=== PATIENT | female | born 1980 | race Caucasian/White ===

== ENCOUNTER 2020-03-20 13:23 | Emergency (ER) | payer OTHER, SELFPAY ==
--- NOTE | 2020-03-20 13:30 | PC.NURSE ---
POC test performed on 03/12/2020
== END 2020-03-20 13:30 | disposition left against medical advice (07) ==
LOC: EXPTROY 13:29
PROVIDERS: Emergency Provider Nurse Practitioner Family; PCP Nurse Practitioner
DX: Z53.21 Procedure and treatment not carried out due to patient leaving prior to being seen by health care provider (principal); U07.1 COVID-19
CPT/HCPCS: 87426; 99199; C9803

== ENCOUNTER → 2020-07-02 09:43 | Outpatient (CLI) | payer OTHER, SELFPAY ==
--- NOTE | ~2020-07-02 | XR_ITS ---
EXAMINATION: XR chest 2V DATE: 07/02/2020 10:11 INDICATION: Preop. TECHNIQUE: Frontal and lateral views of the chest were obtained. COMPARISON: None. FINDINGS: The chest demonstrates clear lungs without pneumonia, pleural effusion, or pneumothorax. Th e heart size is normal. There are surgical clips in the abdomen. IMPRESSION: 1. No acute cardiopulmonary disease. Reviewed, dictated and finalized at location B.
== END ==
DX: Z01.818 Encounter for other preprocedural examination (principal)
CPT/HCPCS: 71046

== ENCOUNTER 2021-06-05 08:29 | Outpatient (CLI) | payer OTHER, SELFPAY ==
--- NOTE | ~2021-06-05 | MM_ITS ---
EXAMINATION: MM screening jaimie BI w lex HISTORY: Screening mammogram TECHNIQUE: Craniocaudal and mediolateral oblique 3-D tomosynthesis images were obtained and synthetic 2-D images were generated. CAD analysis was submitted and interpreted. COMPARISON: No prior mammogram is available for comparison at this institution. BREAST PARENCHYMAL COMPOSITION: There are scattered areas of fibroglandular density. FINDINGS: There is no evidence of suspicious mass, calcification, or architectural distortion to sugg est malignancy in either breast. There has been no suspicious interval change. IMPRESSION: 1. No mammographic evidence of malignancy. 2. Recommend routine screening mammography in one year. BI-RADS Category 1: Negative Reviewed, dictated and finalized at location A.
[2021-06-05 09:19] LABS: Basophils Percent Auto 0.3 % (0.2-1.2); Eosinophils Absolute Auto 0.2 K/mm3 (0-0.3); Eosinophils Percent Auto 2.7 % (0-4.4); Hematocrit 40.7 % (37.0-47.0); Hemoglobin 13.9 g/dL (12.0-15.0); Immature Granulocyte Absolute 0.01 K/mm3 (0.00-0.031); Immature Granulocyte Percent A 0.2 % (0-0.5); Lymphocytes Absolute Auto 2.36 K/mm3 (0.9-3.2); Lymphocytes Percent Auto 37.3 % (18.3-44.2); Mean Corpuscular HGB Conc 34.2 g/dl (32-36); Mean Corpuscular Hemoglobin 29.9 pg (26-34); Mean Corpuscular Volume 87.5 fl (80-100); Mean Platelet Volume 9.8 fl (7.4-10.4); Monocytes Absolute Auto 0.4 K/mm3 (0.1-0.6); Monocytes Percent Auto 5.7 % (2.6-8.5); Neutrophils Absolute Auto 3.4 K/mm3 (1.3-6.7); Neutrophils Percent Auto 53.8 % (45.5-73.1); Platelet Count Result 268 k/mm3 (150-375); Red Blood Count 4.65 M/mm3 (4.2-5.4); Red Cell Distribution Width 13.2 % (11.5-14.5); White Blood Count 6.3 K/mm3 (4.5-10.0)
[2021-06-05 09:32] LABS: Alanine Aminotransferase 18 U/L (4-35); Albumin Level 4.5 g/dL (3.5-5.1); Alkaline Phosphatase 41 U/L (38-126); Anion Gap 4 mmol/L (8-16); Aspartate Amino Transferase 28 U/L (14-36); Bilirubin,Total 0.4 mg/dL (0.2-1.3); Blood Urea Nitrogen 17 mg/dL (7-17); Calcium 8.8 mg/dL (8.4-10.2); Carbon Dioxide 28 mmol/L (22-30); Chloride 105 mmol/L (98-107); Cholesterol 190 mg/dL (0-200); Estimated Glomerular Filt Rate > 60; Glucose 92 mg/dL (65-110); HDL Direct 61 mg/dL; Potassium 3.8 mmol/L (3.4-5.0); Sodium 137 mmol/L (137-145); Triglycerides 95 mg/dL (<150)
[2021-06-05 09:43] LABS: LDL Cholesterol Direct 92 mg/dL
[2021-06-05 09:58] LABS: Iron 168 ug/dL (37-170)
[2021-06-05 10:08] LABS: Percent Iron Saturation 41 % (20-50)
[2021-06-05 10:45] LABS: Folic Acid > 20.0 ng/mL (2.76->20)
== END 2021-06-05 08:30 | disposition home or self-care (01) ==
LOC: ANHIMG 08:32
PROVIDERS: PCP Nurse Practitioner; Visit Provider Nurse Practitioner
DX: Z12.31 Encounter for screening mammogram for malignant neoplasm of breast (principal); D50.9 Iron deficiency anemia, unspecified; F33.8 Other recurrent depressive disorders; Z13.220 Encounter for screening for lipoid disorders
CPT/HCPCS: 36415; 77063; 77067; 80053; 80061; 82746; 83540; 83550; 84443; 85025

== ENCOUNTER → 2021-10-03 09:20 | Outpatient (CLI) | payer OTHER, SELFPAY ==
--- NOTE | ~2021-10-03 | XR_ITS ---
XR cervical spine 4-5V DATE: 10/03/2021 09:40 INDICATION: Bilateral posterior neck pain for years TECHNIQUE: AP, lateral, swimmer, open-mouth views COMPARISON: None FINDINGS: There is mild reversal cervical curvature. There is moderate degenerative disc disease and mild retrolisthesis at C5-6. The remaining cervical i nterspaces are well preserved. C1 and C2 are normally aligned and the odontoid process is intact. No fracture or dislocation or lock ed facet or prevertebral soft tissue swelling. IMPRESSION: Mild reversal Moderate degenerative disc disease and mild retrolisthesis at C5-6 Reviewed, dictated and finalized at location B.
== END ==
PROVIDERS: PCP Nurse Practitioner; Visit Provider Nurse Practitioner
DX: M50.322 Other cervical disc degeneration at C5-C6 level (principal); G89.29 Other chronic pain
CPT/HCPCS: 72050

== ENCOUNTER 2021-10-04 09:04 | Outpatient (CLI) | payer OTHER, SELFPAY ==
[2021-10-04 19:08] LABS: Basophils Percent Auto 0.3 % (0.2-1.2); Eosinophils Absolute Auto 0.1 K/mm3 (0-0.3); Eosinophils Percent Auto 2.1 % (0-4.4); Hematocrit 38.8 % (37.0-47.0); Hemoglobin 12.8 g/dL (12.0-15.0); Immature Granulocyte Absolute 0.02 K/mm3 (0.00-0.031); Immature Granulocyte Percent A 0.3 % (0-0.5); Lymphocytes Absolute Auto 2.02 K/mm3 (0.9-3.2); Lymphocytes Percent Auto 32.4 % (18.3-44.2); Mean Corpuscular Volume 91.1 fl (80-100); Mean Platelet Volume 10.1 fl (7.4-10.4); Monocytes Absolute Auto 0.2 K/mm3 (0.1-0.6); Monocytes Percent Auto 3.5 % (2.6-8.5); Neutrophils Absolute Auto 3.8 K/mm3 (1.3-6.7); Neutrophils Percent Auto 61.4 % (45.5-73.1); Platelet Count Result 260 k/mm3 (150-375); Red Blood Count 4.26 M/mm3 (4.2-5.4); Red Cell Distribution Width 12.2 % (11.5-14.5); White Blood Count 6.2 K/mm3 (4.5-10.0)
[2021-10-04 20:46] LABS: Alanine Aminotransferase 15 U/L (6-35); Albumin Level 4.2 g/dL (3.5-5.1); Alkaline Phosphatase 44 U/L (38-126); Amylase 83 U/L (30-110); Anion Gap 6 mmol/L (8-16); Aspartate Amino Transferase 35 U/L (14-36); Bilirubin,Total 0.5 mg/dL (0.2-1.3); Blood Urea Nitrogen 10 mg/dL (7-17); Calcium 8.7 mg/dL (8.4-10.2); Carbon Dioxide 28 mmol/L (22-30); Chloride 104 mmol/L (98-107); Estimated Glomerular Filt Rate > 60; Glucose 123 mg/dL (65-110); Lipase 131 U/L (23-300); Potassium 3.8 mmol/L (3.4-5.0); Sodium 138 mmol/L (137-145)
== END 2021-10-04 09:05 | disposition home or self-care (01) ==
LOC: ANHGOSHLAB 09:07
PROVIDERS: PCP Nurse Practitioner; Visit Provider Nurse Practitioner
DX: R10.13 Epigastric pain (principal); R11.0 Nausea
CPT/HCPCS: 36415; 80053; 82150; 83690; 85025

== ENCOUNTER 2021-11-26 00:36 | Day surgery (SDC) | payer OTHER, SELFPAY ==
[2021-11-14 13:05] VITALS: BMI 25.0
--- NOTE | 2021-11-25 14:11 | P.PNAN_ITS ---
Anes - Initial Pre Proc Eval Procedure: Operation Date: 11/26/21 08:00 Proposed Procedures p Esophagogastroduodenoscopy - Braden Jennings MD Date/Time: 11/25/21 14:11 Surgeon: Braden Jennings MD Pre Op Diagnosis: epigastric pain Patient Data Age: 41 Gender: F Height: 1.68 m Weight: 70.5 kg Allergies Allergy/AdvReac Type Severity Reaction Status Date / Time sulfamethoxazole Allergy Mild rash Verified 11/26/21 06:50 [From Bactrim] trimethoprim [From Bactrim] Allergy Mild rash Verified 11/26/21 06:50 Home Medications Medication Instructions Recorded Confirmed Type bupropion HCl 300 mg 24 hr tablet, 300 mg PO QAM 10/17/21 11/14/21 History extended release (Wellbutrin XL) cetirizine 10 mg tablet (Zyrtec) 10 mg PO DAILY PRN Allergy Symptoms 10/17/21 11/14/21 History Patient hx anesthesia problems: none Family hx anesthesia problems: none Results Review: All pre-operative results and documents have been reviewed as part of the pre- operative evaluation. [facility] Past Medical History Medical History (Updated 11/25/21 @ 14:11 by Srinivasa Willams DO) Depression Surgical History Surgical History (System 10/18/21 @ 13:57 by Margareth Galeano) H/O abdominoplasty H/O gastric sleeve History of arthroplasty of right hip History of cholecystectomy History of repair of hiatal hernia History of sleeve gastrectomy Social History Social History (System 10/18/21 @ 13:57 by Margareth Galeano) Smoking status: Never smoker Second hand tobacco smoke exposure: No Alcohol intake: current Alcohol use details: twice a month socially Substance use: never Substance use type: does not use Living arrangements: with family Gender identity (if verbalized by the patient): Female Spiritual care concerns: No Anes - Eval Final PreProcedure Day of Procedure 11/25/21 14:11 Patient weight: overweight Heart: regular rate and rhythm Lungs: clear to auscultation Airway: Mallampati scale class II Neurological: alert and oriented Last oral intake: >/= 8 hours ASA classification: II Emergent: no Anesthetic plan: proceed Anesthesia type and monitoring: general GIVS and standard monitoring Results Review: All pre-operative results and documents have been reviewed as part of the pre- operative evaluation. Informed Consent: The patient's anesthetic plan and its attendant risks and benefits were discussed with the patient/family/POA. Questions were solicited and answers provided to the satisfaction of the patient/family/POA.
[2021-11-26 06:51] VITALS: BP 109/61; PULSE 78; RESP 18; TEMP 36.4; O2SAT 100; BMI 26.9
[2021-11-26] MEDS: LACTATED RINGERS 1,000 ML 150 ML IV CONT (07:03)
--- NOTE | 2021-11-26 07:55 | PM.HPGS ---
History of Present Illness History of Present Illness Consent: Risks, benefits, and alternatives have been discussed and questions answered. Patient agrees to proceed with procedure. Chief complaint: epigastric pain Narrative: Adia Hancock is a 41 year old female with previous gastric sleeve who had episode of epigastric pain resolved after trial of ppi bid and pepcid, she is not longer taking them. Now mild nausea, otherwise doing ok. Review of Systems Constitutional: Constitutional: Denies headache(s) and Denies weakness Eyes: Eyes: Denies blurry vision ENT: Reports Normal hearing present, Denies headache(s) and Denies neck pain Cardiovascular: Cardiovascular: Denies chest pain and Denies dyspnea Respiratory: Respiratory: Denies dyspnea Gastrointestinal: Gastrointestinal: Reports no additional gastrointestinal complaints Genitourinary: Genitourinary: Denies dysuria Musculoskeletal: Musculoskeletal: Denies neck pain Integumentary/Breasts: Skin/Breast: Denies dry skin Neurologic: Reports Normal hearing present, Denies headache(s) and Denies weakness Psychiatric: Psychiatric: Denies anxiety Endocrine: Endocrine: Denies change in body appearance Hematologic/Lymphatic: Hematologic/Lymphatic: Denies easy bleeding Allergic/Immunologic: Allergic/Immunologic: Denies urticaria PMFSH Past Medical History Medical History (Updated 11/26/21 @ 07:56 by Braden Jennings MD) Depression Nausea Surgical History Surgical History (System 10/18/21 @ 13:57 by Margareth Galeano) H/O abdominoplasty H/O gastric sleeve History of arthroplasty of right hip History of cholecystectomy History of repair of hiatal hernia History of sleeve gastrectomy Social History Social History (System 10/18/21 @ 13:57 by Margareth Galeano) Smoking status: Never smoker Second hand tobacco smoke exposure: No Alcohol intake: current Alcohol use details: twice a month socially Substance use: never Substance use type: does not use Living arrangements: with family Gender identity (if verbalized by the patient): Female Spiritual care concerns: No Meds Home Medications and Allergies Home Medications Medication Instructions Recorded Confirmed Type bupropion HCl 300 mg 24 hr tablet, 300 mg PO QAM 10/17/21 11/14/21 History extended release (Wellbutrin XL) cetirizine 10 mg tablet (Zyrtec) 10 mg PO DAILY PRN Allergy Symptoms 10/17/21 11/14/21 History Allergies Allergy/AdvReac Type Severity Reaction Status Date / Time sulfamethoxazole Allergy Mild rash Verified 11/26/21 06:50 [From Bactrim] trimethoprim [From Bactrim] Allergy Mild rash Verified 11/26/21 06:50 Vital Signs Vital Signs - 24 hr 11/26/21 06:51 Temperature 97.6 F Pulse Rate 78 Respiratory Rate 18 Blood Pressure 109/61 Pulse Oximetry 100 Exam Const: General: comfortable and no acute distress HENMT: General nose exam: Normal nares present Eyes: General: appearance normal, both eyes and all related structures Neck: Neck: no JVD Resp: Auscultation: clear to auscultation bilaterally Cardio: Rate: regular rate Rhythm: regular rhythm GI: Inspection: non-distended GI Palp: Yes Soft to palpation Skin: General skin exam: normal color Neuro: General: gait normal Speech: normal speech Extrem: General: normal to inspection Psych: Mental Status: mental status grossly normal Assessment and Plan Assessment and plan (1) History of sleeve gastrectomy: Code(s): Z90.3 - Acquired absence of stomach [part of] Status: Acute (2) Nausea: Code(s): R11.0 - Nausea Status: Acute Assessment and Plan: will check with egd
[2021-11-26 08:12] VITALS: BP 95/59; PULSE 81; RESP 21; O2SAT 100
[2021-11-26 08:22] VITALS: BP 94/53; PULSE 82; RESP 22; O2SAT 100
[2021-11-26 08:32] VITALS: BP 108/71; PULSE 76; RESP 18; O2SAT 100
== END 2021-11-26 08:38 | disposition home or self-care (01) ==
PROVIDERS: PCP Nurse Practitioner; Visit Provider Internal Medicine Gastroenterology
PROC: 0DJ08ZZ Inspection of Upper Intestinal Tract, Via Natural or Artificial Opening Endoscopic (ICD-10-PCS; CPT 43235; principal; 2021-11-26 08:00)
DX: R10.13 Epigastric pain (principal); R11.0 Nausea; K29.50 Unspecified chronic gastritis without bleeding; F32.A Depression, unspecified; Z98.84 Bariatric surgery status; Z90.49 Acquired absence of other specified parts of digestive tract
CPT/HCPCS: 43239; 88305; J2704; J7120

== ENCOUNTER 2021-12-02 14:11 | Outpatient (CLI) | payer OTHER, SELFPAY ==
[2021-12-02 20:49] LABS: Hemoglobin A1C 4.8 % (<5.7)
== END 2021-12-02 14:12 | disposition home or self-care (01) ==
LOC: ANHGOSHLAB 14:13
PROVIDERS: PCP Nurse Practitioner; Visit Provider Nurse Practitioner
DX: R73.9 Hyperglycemia, unspecified (principal)
CPT/HCPCS: 36415; 83036

== ENCOUNTER 2021-12-10 10:20 | Outpatient (CLI) | payer OTHER, SELFPAY ==
--- NOTE | ~2021-12-10 | MR_ITS ---
EXAMINATION: MR cervical spine wo con DATE: 12/10/2021 11:04 INDICATION: Cervical spinal stenosis. TECHNIQUE: Magnetic resonance imaging (MRI) of the cervical spine was performed without intravenous c ontrast. Sequences included sagittal T2-weighted FSE, sagittal T2-weighted FS FSE, sagittal T1-weight ed FSE, axial MERGE, and axial T2-weighted FSE. COMPARISON: Cervical spine radiographs 10/03/2021 FINDINGS: There is kyphosis of cervical spine. Vertebral body heights are normal. There is mildly dec reased disc height at C5-C6. The spinal cord signal intensity is normal. The following disc levels ar e specifically discussed: C2-C3: The disc does not extend beyond the endplate margin. There is no uncovertebral joint osteoarth ritis. There is mild bilateral facet joint osteoarthritis. There is no neural foraminal stenosis. The re is no central canal stenosis. C3-C4: There is a central protrusion. There is no uncovertebral joint osteoarthritis. There is no fac et joint osteoarthritis. There is no neural foraminal stenosis. There is mild central canal stenosis. C4-C5: The disc does not extend beyond the endplate margin. There is mild left uncovertebral joint os teoarthritis. There is mild left facet joint osteoarthritis. There is no neural foraminal stenosis. T here is no central canal stenosis. C5-C6: The disc is bulging. There is mild bilateral uncovertebral joint osteoarthritis. There is mild left facet joint osteoarthritis. There is no neural foraminal stenosis. There is mild central canal stenosis. C6-C7: There is a central protrusion. There is no uncovertebral joint osteoarthritis. There is no fac et joint osteoarthritis. There is no neural foraminal stenosis. There is no central canal stenosis. C7-T1: The disc does not extend beyond the endplate margin. There is no uncovertebral joint osteoarth ritis. There is mild bilateral facet joint osteoarthritis. There is no neural foraminal stenosis. The re is no central canal stenosis. IMPRESSION: 1. Mild cervical spondylosis. Reviewed, dictated and finalized at location A.
== END 2021-12-10 10:21 | disposition home or self-care (01) ==
PROVIDERS: PCP Nurse Practitioner; Visit Provider Physical Medicine & Rehabilitation
DX: M47.813 Spondylosis without myelopathy or radiculopathy, cervicothoracic region (principal); M48.03 Spinal stenosis, cervicothoracic region
CPT/HCPCS: 72141

== ENCOUNTER 2022-04-14 08:07 | Outpatient (CLI) | payer OTHER, SELFPAY ==
[2022-04-14 18:37] LABS: Basophils Percent Auto 0.3 % (0.2-1.2); Eosinophils Absolute Auto 0.1 K/mm3 (0-0.3); Eosinophils Percent Auto 2.4 % (0-4.4); Hematocrit 38.5 % (37.0-47.0); Hemoglobin 13.1 g/dL (12.0-15.0); Immature Granulocyte Absolute 0.02 K/mm3 (0.00-0.031); Immature Granulocyte Percent A 0.3 % (0-0.5); Lymphocytes Absolute Auto 2.07 K/mm3 (0.9-3.2); Lymphocytes Percent Auto 35.3 % (18.3-44.2); Mean Corpuscular Hemoglobin 30.2 pg (26-34); Mean Corpuscular Volume 88.7 fl (80-100); Mean Platelet Volume 9.9 fl (7.4-10.4); Monocytes Absolute Auto 0.4 K/mm3 (0.1-0.6); Monocytes Percent Auto 6.1 % (2.6-8.5); Neutrophils Absolute Auto 3.3 K/mm3 (1.3-6.7); Neutrophils Percent Auto 55.6 % (45.5-73.1); Platelet Count Result 280 k/mm3 (150-375); Red Blood Count 4.34 M/mm3 (4.2-5.4); Red Cell Distribution Width 12.5 % (11.5-14.5); White Blood Count 5.9 K/mm3 (4.5-10.0)
[2022-04-14 19:05] LABS: LDL Cholesterol Direct 85 mg/dL
[2022-04-14 19:39] LABS: Alanine Aminotransferase 20 U/L (6-35); Albumin Level 3.8 g/dL (3.5-5.1); Alkaline Phosphatase 45 U/L (38-126); Anion Gap 6 mmol/L (8-16); Aspartate Amino Transferase 33 U/L (14-36); Bilirubin,Total 0.5 mg/dL (0.2-1.3); Blood Urea Nitrogen 11 mg/dL (7-17); Calcium 8.3 mg/dL (8.4-10.2); Carbon Dioxide 29 mmol/L (22-30); Chloride 105 mmol/L (98-107); Cholesterol 177 mg/dL (0-200); Estimated Glomerular Filt Rate > 60; Glucose 76 mg/dL (65-110); HDL Direct 62 mg/dL; Potassium 3.8 mmol/L (3.4-5.0); Sodium 140 mmol/L (137-145); Triglycerides 78 mg/dL (<150)
[2022-04-14 19:56] LABS: Hemoglobin A1C 4.6 % (<5.7)
== END 2022-04-14 08:08 | disposition home or self-care (01) ==
LOC: ANHGOSHLAB 08:08
PROVIDERS: PCP Nurse Practitioner; Visit Provider Nurse Practitioner
DX: Z01.419 Encounter for gynecological examination (general) (routine) without abnormal findings (principal)
CPT/HCPCS: 36415; 80053; 80061; 83036; 85025

== ENCOUNTER 2022-04-28 09:35 | Outpatient (CLI) | payer OTHER, SELFPAY ==
--- NOTE | ~2022-04-28 | US_ITS ---
EXAMINATION: US pelvic complete w TV DATE: 04/28/2022 10:16 INDICATION: Polycystic ovarian syndrome TECHNIQUE: Multiple transabdominal and endovaginal sonographic images of the pelvis were obtained. COMPARISON: None. FINDINGS: The uterus measures 9.9 x 4.7 x 5.3 cm. The endometrial complex measures 14 mm. The right o vary measures 3.4 x 3 x 2.5 cm and contains multiple small follicles measuring up to 1.6 cm. The left ovary measures 3.5 x 2 x 1.7 cm and contains multiple small follicles measuring up to 0.1 cm. There is normal vascular flow in the ovaries. There is no free fluid in the pelvis. IMPRESSION: 1. Multiple small follicles within normal size ovaries. Reviewed, dictated and finalized at location B. [employer] EQUIPMENT OPERATOR
== END 2022-04-28 09:36 | disposition home or self-care (01) ==
PROVIDERS: PCP Nurse Practitioner; Visit Provider Obstetrics & Gynecology Gynecology
DX: E28.2 Polycystic ovarian syndrome (principal)
CPT/HCPCS: 76830; 76856

== ENCOUNTER 2022-08-01 18:03 | Emergency (ER) | payer OTHER, SELFPAY ==
--- NOTE | ~2022-08-01 | XR_ITS ---
EXAMINATION: XR tibia fibula LT 2V DATE: 08/01/2022 18:18 INDICATION: Distal anterior left lower leg pain post fall from lawn more one week prior TECHNIQUE: Anteroposterior and lateral views of the left tibia and fibula were obtained. COMPARISON: None. FINDINGS: Alignment is normal. No fracture. Joint spaces are normal. Mild soft tissue swelling and subcutaneous edema anterior to the distal tibia where there is also a tiny round phlebolith. Soft tissues are oth erwise unremarkable. IMPRESSION: 1. No osseous abnormality. Reviewed, dictated and finalized at location A. IMPRESSION: 1. No osseous abnormality.
[2022-08-01 18:10] VITALS: BP 126/63; PULSE 84; RESP 16; TEMP 36.4; O2SAT 100
--- NOTE | 2022-08-01 18:33 | ED.LOWEXIN ---
HPI - Extremity Injury (Lower) General Chief Complaint: Extremity Injury, Lower Stated Complaint: left leg injury Time Seen by Provider: 08/01/22 18:12 Source: patient and RN notes reviewed Mode of arrival: ambulatory Limitations: no limitations History of Present Illness HPI Narrative: Patient presents today complaining of an injury to her left lower leg. She fell off her belt sander last week and injured her left lower leg. States she had immediate bruising, which has been improving. She was recently started on aspirin for AFib. Denies numbness or tingling. Will currently rates her pain 6/10, which increases with weight-bearing. Related Data Home Medications Medication Instructions Recorded Confirmed bupropion HCl 300 mg 24 hr tablet, 300 mg PO QAM 10/17/21 08/01/22 extended release (Wellbutrin XL) cetirizine 10 mg tablet (Zyrtec) 10 mg PO DAILY PRN Allergy Symptoms 10/17/21 08/01/22 metformin 500 mg tablet 500 mg PO BID 06/17/22 08/01/22 aspirin 325 mg tablet 325 mg PO DAILY 07/22/22 08/01/22 Allergies Allergy/AdvReac Type Severity Reaction Status Date / Time sulfamethoxazole AdvReac Mild rash Verified 08/01/22 18:07 [From Bactrim] trimethoprim [From Bactrim] AdvReac Mild rash Verified 08/01/22 18:07 Review of Systems Review of Systems: CONSTITUTIONAL: Denies body aches, fever, chills, or sweats. EYES: Denies visual changes, redness, or discharge. ENT: Denies rhinorrhea, congestion, sore throat, or otalgia. CARDIOVASCULAR: Denies chest pain, palpitations, or edema. RESPIRATORY: Denies cough or dyspnea. GASTROINTESTINAL: Denies abdominal pain, nausea, vomiting, or diarrhea. GENITOURINARY: Denies dysuria or hematuria. SKIN: Denies rash, itching, or wounds. MUSCULOSKELETAL: + left lower leg pain NEUROLOGIC: Denies headache, numbness, tingling, or weakness. PSYCH: Denies depression or anxiety. [facility] Past Medical History Medical History Depression Nausea Surgical History Surgical History H/O abdominoplasty H/O gastric sleeve History of arthroplasty of right hip History of cholecystectomy History of repair of hiatal hernia History of sleeve gastrectomy Social History Social History Smoking status: Never smoker Second hand tobacco smoke exposure: No Alcohol intake: current Alcohol use details: twice a month socially Substance use: never Substance use type: does not use Living arrangements: with family Occupation/Education: occupation Gender identity (if verbalized by the patient): Female Spiritual care concerns: No Comments At time of signature, I have reviewed and agree with nursing past medical, surgical, social and family history unless otherwise noted. Please see nursing chart for further information. There is no relevant family history pertinent to the presenting complaint Exam Narrative: GENERAL: Well-appearing, well-nourished, and in no acute distress. HEAD: Normocephalic, atraumatic. EYES: EOMI. No redness or drainage. Conjunctivae normal. ENT: Mucous membranes pink and moist. NECK: Normal AROM. . CHEST: No respiratory distress. EXTREMITIES: Left leg: Healing ecchymosis to the anterior lower leg and ankle. No edema noted. Few scattered scabbed abrasions. Distal sensation intact. Capillary refill normal. Pedal pulse normal. Full range of motion of the knee and ankle without pain. SKIN: Warm, dry, no rash. Capillary refill normal. Normal skin turgor. NEURO: No focal deficits. Alert and oriented x3. Gait steady. PSYCH: Normal affect. No signs of depression or anxiety. Course Course Level of Care: Express Care Visit Vital Signs Vital signs: Vital Signs Temperature 97.5 F L 08/01/22 18:10 Pulse Rate 84 08/01/22 18:10 Respiratory Rate 16 08/01/22
== END 2022-08-01 19:40 | disposition home or self-care (01) ==
PROVIDERS: Emergency Provider Nurse Practitioner; PCP Nurse Practitioner
DX: S80.12XA Contusion of left lower leg, initial encounter (principal); V89.1XXA Person injured in unspecified nonmotor-vehicle accident, nontraffic, initial encounter; Y93.H9 Activity, other involving exterior property and land maintenance, building and construction
CPT/HCPCS: 73590; 99213; G0463

== ENCOUNTER 2022-10-02 08:55 | Outpatient (CLI) | payer OTHER, SELFPAY ==
--- NOTE | ~2022-10-02 | MM_ITS ---
EXAMINATION: MM screening jaimie BI w lex HISTORY: Screening TECHNIQUE: Craniocaudal and mediolateral oblique 3-D tomosynthesis images were obtained and synthetic 2-D images were generated. CAD analysis was submitted and interpreted. COMPARISON: 06/05/2021 BREAST PARENCHYMAL COMPOSITION: There are scattered areas of fibroglandular density. FINDINGS: There is no evidence of suspicious mass, calcification, or architectural distortion to sugg est malignancy in either breast. There has been no suspicious interval change. IMPRESSION: 1. No mammographic evidence of malignancy. 2. Recommend routine screening mammography in one year. BI-RADS Category 1: Negative Reviewed, dictated and finalized at location A.
== END 2022-10-02 08:56 | disposition home or self-care (01) ==
PROVIDERS: PCP Nurse Practitioner; Visit Provider Nurse Practitioner
DX: Z12.31 Encounter for screening mammogram for malignant neoplasm of breast (principal)
CPT/HCPCS: 77063; 77067

== ENCOUNTER → 2023-02-07 09:58 | Outpatient (CLI) | payer OTHER, SELFPAY ==
--- NOTE | ~2023-02-07 | XR_ITS ---
EXAMINATION: XR abdomen obstructive series DATE: 02/07/2023 10:16 INDICATION: Constipation TECHNIQUE: Upright and supine views of the abdomen were obtained. COMPARISON: None. FINDINGS: A moderate volume of colonic stool is present. There are no dilated loops of bowel. No free intraperitoneal gas is identified. There are phleboliths of the pelvis. Surgical changes are noted i n the left upper quadrant. Surgical clips in the right upper quadrant are likely from prior cholecyst ectomy. IMPRESSION: 1. Nonobstructive bowel gas pattern. 2. Moderate volume of colonic stool. Reviewed, dictated and finalized at location A. CCO BLENDER
== END ==
PROVIDERS: PCP Nurse Practitioner; Visit Provider Nurse Practitioner
DX: K59.00 Constipation, unspecified (principal)
CPT/HCPCS: 74019

== ENCOUNTER 2023-04-23 08:25 | Outpatient (CLI) | payer OTHER, SELFPAY ==
--- NOTE | 2023-04-23 | ECG_ITS ---
Measurements Intervals [place] Rate: 78 P: 70 ME: 193 QRS: 32 QRSD: 108 T: 71 QT: 386 QTc: 440 Interpretive Statements SINUS RHYTHM INCOMPLETE RIGHT BUNDLE BRANCH BLOCK [90+ ms QRS DURATION, TERMINAL R IN V1/V2, 40+ ms S IN I/aVL/V4/V5/V6] NO PREVIOUS ECG AVAILABLE FOR COMPARISON Electronically Signed On 04-23-2023 11:27:10 RESOURCE PROTECTION SPECIALIST by Nneka Lopez M.D.
[2023-04-23 08:59] LABS: Anion Gap 2 mmol/L (8-16); Blood Urea Nitrogen 9 mg/dL (7-17); Calcium 8.9 mg/dL (8.4-10.2); Carbon Dioxide 31 mmol/L (22-30); Chloride 104 mmol/L (98-107); Estimated Glomerular Filt Rate > 60; Glucose 87 mg/dL (65-110); Potassium 4.2 mmol/L (3.4-5.0); Sodium 137 mmol/L (137-145)
[2023-04-23 09:02] LABS: Basophils Percent Auto 0.2 % (0.2-1.2); Eosinophils Absolute Auto 0.1 K/mm3 (0-0.3); Eosinophils Percent Auto 1.7 % (0-4.4); Hematocrit 40.5 % (37.0-47.0); Hemoglobin 13.5 g/dL (12.0-15.0); Immature Granulocyte Absolute 0.04 K/mm3 (0.00-0.031); Immature Granulocyte Percent A 0.5 % (0-0.5); Lymphocytes Absolute Auto 1.93 K/mm3 (0.9-3.2); Lymphocytes Percent Auto 22.8 % (18.3-44.2); Mean Corpuscular HGB Conc 33.3 g/dl (32-36); Mean Corpuscular Hemoglobin 30.3 pg (26-34); Mean Platelet Volume 9.4 fl (7.4-10.4); Monocytes Absolute Auto 0.4 K/mm3 (0.1-0.6); Monocytes Percent Auto 5.2 % (2.6-8.5); Neutrophils Absolute Auto 5.9 K/mm3 (1.3-6.7); Neutrophils Percent Auto 69.6 % (45.5-73.1); Platelet Count Result 327 k/mm3 (150-375); Red Blood Count 4.45 M/mm3 (4.2-5.4); Red Cell Distribution Width 13.2 % (11.5-14.5); White Blood Count 8.5 K/mm3 (4.5-10.0)
[2023-04-23 09:10] LABS: INR 0.9; Partial Thromboplastin Time 27.1 SECONDS (22.3-36.8); Prothrombin Time 12.9 Seconds (11.1-14.7)
[2023-04-23 09:39] LABS: HIV 1/2 Ab P24 Ag Result Negative (Negative)
== END 2023-04-23 08:26 | disposition home or self-care (01) ==
LOC: ANHLAB 08:30
PROVIDERS: PCP Nurse Practitioner; Visit Provider Nurse Practitioner
DX: Z01.818 Encounter for other preprocedural examination (principal); I45.19 Other right bundle-branch block
CPT/HCPCS: 36415; 80048; 85025; 85610; 85730; 86703; 93005; G0432

== ENCOUNTER 2024-01-27 13:58 | Outpatient (CLI) | payer OTHER, SELFPAY ==
--- NOTE | ~2024-01-27 | MM_ITS ---
EXAMINATION: MM scrn jaimie implant BI w lex HISTORY: Screening mammogram TECHNIQUE: Craniocaudal and mediolateral oblique 3-D tomosynthesis images with implant displacement a nd synthetic 2-D images were generated. Craniocaudal and mediolateral oblique views of the breasts wi thout implant displacement were obtained using full field digital mammography. CAD analysis was submi tted and interpreted. COMPARISON: 10/02/2022, 06/05/2021 BREAST PARENCHYMAL COMPOSITION: There are scattered areas of fibroglandular density. FINDINGS: There is no evidence of suspicious mass, calcification, or architectural distortion to sugg est malignancy in either breast. There has been no suspicious interval change. IMPRESSION: No mammographic evidence of malignancy. Recommend routine screening mammography in one year. BI-RADS Category 1: Negative Reviewed, dictated and finalized at location . ORATE ATTORNEY
== END 2024-01-27 13:59 | disposition home or self-care (01) ==
LOC: ANHIMG 14:01
PROVIDERS: PCP Nurse Practitioner; Visit Provider Nurse Practitioner
DX: Z12.31 Encounter for screening mammogram for malignant neoplasm of breast (principal)
CPT/HCPCS: 77063; 77067

== ENCOUNTER 2024-05-15 18:20 | Emergency (ER) | payer OTHER, SELFPAY ==
[2024-05-15 18:25] VITALS: BP 113/69; PULSE 124; RESP 16; TEMP 36.2; O2SAT 100
[2024-05-15 19:06] LABS: BEDSIDEPREGUCG Negative (Negative)
[2024-05-15 19:09] LABS: Basophils Percent Auto 0.4 % (0.2-1.2); Eosinophils Absolute Auto 0.1 K/mm3 (0-0.3); Eosinophils Percent Auto 0.9 % (0-4.4); Hematocrit 39.8 % (37.0-47.0); Hemoglobin 13.3 g/dL (12.0-15.0); Immature Granulocyte Absolute 0.02 K/mm3 (0.00-0.031); Immature Granulocyte Percent A 0.2 % (0-0.5); Lymphocytes Absolute Auto 0.74 K/mm3 (0.9-3.2); Lymphocytes Percent Auto 8.7 % (18.3-44.2); Mean Corpuscular HGB Conc 33.4 g/dl (32-36); Mean Corpuscular Hemoglobin 28.4 pg (26-34); Mean Platelet Volume 9.3 fl (7.4-10.4); Monocytes Absolute Auto 0.3 K/mm3 (0.1-0.6); Monocytes Percent Auto 3.1 % (2.6-8.5); Neutrophils Absolute Auto 7.4 K/mm3 (1.3-6.7); Neutrophils Percent Auto 86.7 % (45.5-73.1); Platelet Count Result 322 k/mm3 (150-375); Red Blood Count 4.68 M/mm3 (4.2-5.4); White Blood Count 8.5 K/mm3 (4.5-10.0)
[2024-05-15 19:12] LABS: Add Urine Microscopic? NO; Appearance Urine Clear (Clear); Bilirubin Urine Negative (Negative); Blood Urine Negative (Negative); Color Urine Yellow (Yellow); Glucose Urine UA Negative (Negative); Ketones Urine 1+ mg/dL (Negative); Leukocyte Esterase Ur Negative LEU/UL (Negative); Nitrate Urine Negative (Negative); Protein Urine Negative (Negative); Specific Grav Ur 1.026 (1.001-1.035); Urobilinogen Urine 0.2 mg/dL (<2.0); pH Urine 5.5 (5.0-9.0)
[2024-05-15 19:20] LABS: Alanine Aminotransferase 16 U/L (6-35); Albumin Level 4.3 g/dL (3.5-5.1); Alkaline Phosphatase 63 U/L (38-126); Anion Gap 12 mmol/L (4-12); Aspartate Amino Transferase 20 U/L (14-36); Bilirubin,Total 0.3 mg/dL (0.2-1.3); Blood Urea Nitrogen 20 mg/dL (7-17); Calcium 8.2 mg/dL (8.4-10.2); Carbon Dioxide 23 mmol/L (22-30); Chloride 103 mmol/L (98-107); Estimated CRCL calculation 66 ml/min; Estimated Glomerular Filt Rate > 60; Glucose 121 mg/dL (65-110); Lipase 138 U/L (23-300); Potassium 3.5 mmol/L (3.4-5.0); Sodium 138 mmol/L (137-145)
[2024-05-15] MEDS: ONDANSETRON INJ 4 MG/2 ML VIAL IV PUSH (19:41)
[2024-05-15 19:46] LABS: Influenza A QL RT-PCR Negative (Negative); Influenza B QL RT-PCR Negative (Negative); RSV RNA, RT-PCR Negative (Negative); SARS-CoV-2 RNA PCR Negative (Negative)
[2024-05-15 19:50] VITALS: PULSE 112; RESP 20; O2SAT 100
--- NOTE | 2024-05-15 20:04 | ED.ABDPAIN ---
HPI - Abdominal Pain General Chief Complaint: Abdominal Pain Stated Complaint: abd pain Time Seen by Provider: 05/15/24 19:47 Source: patient Mode of arrival: ambulatory Limitations: no limitations History of Present Illness HPI narrative: This is a 43 year old female that presents to the ER for abdominal pain, nausea, vomiting. Ongoing since this afternoon. Reports diffuse abdominal pain. Related Data Home Medications ?Medication ?Instructions ?Recorded ?Confirmed ?Last Taken ?Type cetirizine 10 mg tablet (Zyrtec) 10 mg PO DAILY PRN Allergy Symptoms 10/17/21 06/23/23 Unknown History metformin 500 mg tablet 500 mg PO BID 06/17/22 06/23/23 Unknown History aspirin 325 mg tablet 325 mg PO DAILY 07/22/22 06/23/23 Unknown History Allergies Allergy/AdvReac Type Severity Reaction Status Date / Time sulfamethoxazole (From AdvReac Mild rash Verified 06/23/23 15:18 Bactrim) trimethoprim (From Bactrim) AdvReac Mild rash Verified 06/23/23 15:18 Review of Systems Review of Systems: CONSTITUTIONAL: Denies fever GASTROINTESTINAL: Reports abdominal pain, nausea, vomiting All systems reviewed & are unremarkable except as noted in HPI and below PMFSH Past Medical History Medical History Depression Nausea Surgical History Surgical History H/O abdominoplasty H/O gastric sleeve History of arthroplasty of right hip History of cholecystectomy History of repair of hiatal hernia History of sleeve gastrectomy Social History Social History Smoking status: Never smoker Second hand tobacco smoke exposure: No Alcohol intake: current Alcohol use details: twice a month socially Substance use: never Substance use type: does not use Living arrangements: with family Occupation/Education: occupation Gender identity (if verbalized by the patient): Female Spiritual care concerns: No Exam Narrative: GENERAL: Uncomfortable, well-nourished, and in no acute distress. HEAD: Normocephalic, atraumatic. EYES: EOMI. CHEST: Clear to auscultation. No respiratory distress. No wheezes rales or rhonchi HEART: Regular rate and rhythm. No murmur heard. Normal peripheral pulses. ABDOMEN: Soft, nondistended, normal active bowel sounds. Mild tenderness to palpation in the epigastrium, without guarding EXTREMITIES: Normal range of motion. No edema. SKIN: Warm, dry, no rash. NEURO: No focal deficits. Alert and oriented x3. PSYCH: Normal mood and affect Course Course Emergency Course: patient updated on her workup. Tolerating ice chips. Ready for discharge Vital Signs Vital signs: Vital Signs Temperature 97.1 F L 05/15/24 18:25 Pulse Rate 124 H 05/15/24 18:25 Respiratory Rate 16 05/15/24 18:25 Blood Pressure 113/69 05/15/24 18:25 Pulse Oximetry 100 05/15/24 18:25 Temperature 97.1 F L 05/15/24 18: Pulse Rate 99 05/15/24 21:51 Respiratory Rate 16 05/15/24 21:51 Blood Pressure 118/73 05/15/24 21:51 Pulse Oximetry 100 05/15/24 21:51 MDM - Abdominal Pain MDM Narrative Medical decision making narrative: Patient presents to the emergency department for abdominal pain, nausea vomiting. Tachycardic upon arrival, this normalized with IV fluid hydration. She is afebrile and nontoxic appearing. Cbc without leukocytosis. Metabolic panel without concerning findings. Lipase is normal. Urine without evidence of infection. CT abdomen and pelvis is without findings of appendicitis, diverticulitis or intestinal obstruction. Finding suggestive of likely a gastroenteritis. Several incidental findings including a sclerotic lesion in the left pubic bone, hypodensity in the liver, pelvic congestion syndrome. patient updated on her workup. Tolerating ice chips. Ready for discharge. She was given warnings to return to the ER Differential Diagnosis Differential diagnosis: Likely calculus of kidney, diverticulitis, gastroenteritis, pancreatitis and small bowel obstruction Lab Data Attestation: I reviewed the patient's lab results. 05/15/24 19:03 05/15/24 19:03 Labs: Lab Results 05/15/24 05/15/24 Range/Units 19:03 19:05 WBC 8.5 (4.5-10.0) K/mm3 RBC 4.68 (4.2-5.4) M/mm3 Hgb 13.3 (12.0-15.0) g/dL Hct 39.8 (37.0-47.0) % MCV 85.0 (80-100) fl MCH 28.4 (26-34) pg MCHC 33.4 (32-36) g/dl RDW 13.0 (11.5-14.5) % Plt Count 322 (150-375) k/mm3 MPV 9.3 (7.4-10.4) fl Immature Gran % (Auto) 0.2 (0-0.5) % Neut % (Auto) 86.7 H (45.5-73.1) % Lymph % (Auto) 8.7 L (18.3-44.2) % [place] % (Auto) 3.1 (2.6-8.5) % Eos % (Auto) 0.9 (0-4.4) % Baso % (Auto) 0.4 (0.2-1.2) % Lymph # (Auto) 0.74 L (0.9-3.2) K/mm3 [place] # (Auto) 0.3 (0.1-0.6) K/mm3 Eos # (Auto) 0.1 (0-0.3) K/mm3 Baso # (Auto) 0.0 (0.0-0.1) K/mm3 Abs Immat Gran (auto) 0.02 (0.00-0.031) K/mm3 Absolute Neuts (auto) 7.4 H (1.3-6.7) K/mm3 Absolute Nucleated RBC 0.000 (0.0-0.012) K/mm3 Nucleated RBC % 0.0 (0.0-0.2) % Sodium 138 (137-145) mmol/L Potassium 3.5 (3.4-5.0) mmol/L Chloride 103 (98-107) mmol/L Carbon Dioxide 23 (22-30) mmol/L Anion Gap 12 (4-12) mmol/L BUN 20 H D (7-17) mg/dL Creatinine 0.78 (0.7-1.0) mg/dL Estim Creat Clear Calc 66 ml/min Estimated GFR > 60 (59 - ) Glucose 121 H (65-110) mg/dL Calcium 8.2 L (8.4-10.2) mg/dL Total Bilirubin 0.3 (0.2-1.3) mg/dL AST 20 (14-36) U/L ALT 16 (6-35) U/L Alkaline Phosphatase 63 (38-126) U/L Total Protein 7.0 (6.3-8.2) g/dL Albumin 4.3 (3.5-5.1) g/dL Lipase 138 (23-300) U/L Urine Color Yellow (Yellow) Urine Appearance Clear (Clear) Urine pH 5.5 (5.0-9.0) Ur Specific [place] 1.026 (1.001-1.035) Urine Protein Negative (Negative) mg/dL Urine Glucose (UA) Negative (Negative) mg/dL Urine Ketones 1+ H (Negative) mg/dL Ur Blood (Man) Negative (Negative) Urine Nitrate Negative (Negative) Urine Bilirubin Negative (Negative) Urine Urobilinogen 0.2 (<2.0) mg/dL Leukocyte Esterase Rfl Negative (Negative) YEFRI/UL POC Urine HCG, Qual Negative (Negative) Influenza A (RT-PCR) Negative (Negative) Influenza B (RT-PCR) Negative (Negative) RSV (RT-PCR) Negative (Negative) SARS-CoV-2 RNA (RT-PCR) Negative (Negative) Imaging Data Radiologist's impression: ITS Impressions Abdomen/Pelvis CT 05/15/24 21:08 IMPRESSION: 1. No evidence of appendicitis, diverticulitis or intestinal obstruction. 2. Fluid filled small bowel is seen suggestive of diarrhea versus enteritis. Slightly dilated second part of duodenum is seen. 3. Sclerotic lesion in the left pubic bone. Follow-up advised. 4. Small hypodensity in the liver. Ultrasound evaluation advised. 5. Congestive pelvic veins suggestive of pelvic congestion syndrome. Slightly prominent left ovary. Critical Care Time Critical Care Time Critical Care Time: No Discharge Plan Discharge Clinical Impression: Gastroenteritis, Bone lesion, Lesion of liver, Pelvic congestion syndrome Patient Disposition: Home, Self-Care Condition: Stable Instructions: Gastroenteritis (ED) Additional Instructions: Return to the ER if you experience fever, worsening abdominal pain with nausea and vomiting, you are unable to keep down liquids or solids, or any other symptoms that are concerning to you Small, frequent meals. [place] diet. Remain well hydrated. Ondansetron as needed for nausea Follow up with primary care doctor for further evaluation of incidental findings on imaging Patient Language: [place] Prescriptions: New ondansetron 4 mg tablet,disintegrating 4 mg PO Q6H PRN (Reason: nausea and vomiting) Qty: 14 0RF No Action metformin 500 mg tablet 500 mg PO BID aspirin 325 mg tablet 325 mg PO DAILY cetirizine [Zyrtec] 10 mg tablet 10 mg PO DAILY PRN (Reason: Allergy Symptoms) metoprolol succinate 25 mg tablet extended release 24 hr See Rx Instructions .ROUTE .COMPLEX Qty: 15 5RF Dose Instruction: Take 1/2 tablet by mouth daily. Rx Instructions: Take 1/2 tablet by mouth daily. flecainide 100 mg tablet See Rx Instructions .ROUTE .COMPLEX Qty: 180 2RF Dose Instruction: Take 1 tablet by mouth every 12 hours. Rx Instructions: Take 1 tablet by mouth every 12 hours. Follow-up/Referrals: Urban,KENROY Ca-C [Primary Care Provider] -
[2024-05-15 20:17] VITALS: BP 99/58
[2024-05-15] MEDS: FAMOTIDINE 20 MG/2 ML VIAL IV PUSH (20:23)
[2024-05-15] MEDS: SODIUM CHLORIDE 0.9% IV 1,000 ML 999 ML IV CONT (20:23)
[2024-05-15 20:24] VITALS: BP 111/54; PULSE 109; RESP 16; O2SAT 100
[2024-05-15] MEDS: MORPHINE SULFATE (*CRX) 4 MG/ML INJ IV PUSH (20:25)
[2024-05-15 21:51] VITALS: BP 118/73; PULSE 99; RESP 16; O2SAT 100
[2024-05-15] MEDS: METOCLOPRAMIDE HCL INJ 10 MG/2 ML VIAL IV PUSH (23:06)
[2024-05-15] MEDS: diphenhydrAMINE HCl INJ 50 MG/ML VIAL 25 MG IV PUSH (23:06)
[2024-05-15 23:15] VITALS: BP 118/73; PULSE 106; RESP 17; O2SAT 98
== END 2024-05-15 23:22 | disposition home or self-care (01) ==
PROVIDERS: Emergency Medicine; Emergency Provider Physician Assistant; PCP Nurse Practitioner
DX: K52.9 Noninfective gastroenteritis and colitis, unspecified (principal); K76.9 Liver disease, unspecified; M89.9 Disorder of bone, unspecified; N94.89 Other specified conditions associated with female genital organs and menstrual cycle; Z98.84 Bariatric surgery status; Z96.641 Presence of right artificial hip joint; Z90.49 Acquired absence of other specified parts of digestive tract; R00.0 Tachycardia, unspecified; I45.10 Unspecified right bundle-branch block
CPT/HCPCS: 36415; 74177; 80053; 81003; 81025; 83690; 85025; 87637; 93005; 96361; 96374; 96375; 99284; J1200; J2270; J2405; J2765; J7030; Q9967

== ENCOUNTER 2024-06-03 14:17 | Outpatient (CLI) | payer OTHER, SELFPAY ==
--- NOTE | ~2024-06-03 | XR_ITS ---
XR bone survey comp/metastic 06/03/2024 15:17 Indication: Bony/metastatic survey. Sclerotic lesion left pelvis seen on recent CT. Procedure: 34 images of the skull, spine, extremities, ribs and pelvis Comparison: CT dated 05/15/2024 Findings: There is normal mineralization. There are cholecystectomy clips. There are surgical changes in the left upper abdomen likely secondary to gastric bypass. There are pelvic phleboliths. There is a transitional L5 vertebra. There is mild spondylosis at C5-6. There is sclerosis of the left pubic ramus laterally, most likely benign melorheostosis. No fracture or traumatic malalignment. No focal suspicious lytic or blastic lesions are otherwise seen. Impression: 1: Probable benign sclerosis of the left pelvis. No additional lytic or blastic lesions are identifie d. Recommend follow-up x-ray as clinically warranted to assess stability. Reviewed, dictated and finalized at location B. Impression: 1: Probable benign sclerosis of the left pelvis. No additional lytic or blastic lesions are identified. Recommend follow-up x-ray as clinically warranted to a ssess stability.
--- OUTSIDE RECORDS SUMMARY | 2024-06-03 14:37 | XMS_ITS | Clinical Summary ---
Author Organization [facility] Address [address] [place] [address] Care Team Providers Care Lehr Stripper Name Role Phone Jada Savage MD Primary Care Provider [phone] Dwight FISHER MD, Jordin Unavailable [phone] Source Comments [facility],non-owned Affiliates and Associated Physician Practices is amultiple site organization consisting of ambulatory clinics and hospital sitesin [place], [place], [place] and [place]. This disclosure is being madepursuant to the Care Everywhere program and may not contain all information available regarding this patient. Last updated 17.[facility] Allergies Active Allergy Reactions Criticality Noted Date Comments Bactrim Rash 10/21/2008 Medications * Be aware that medications may not be up to date on this document. Alwaysverify current medications with the patient. Medication Sig Dispensed Refills Start Date End Date Status multivitamin daily (THERAGRAN) tablet Take 1 Tab by mouth daily with food. Active azithromycin (ZITHROMAX) 250 MG tablet Take 2 tablets now, then 1 tablet daily for 4 days. 6 Tab 0 01/15/2011 Active methylPREDNISolone acetate (DEPO-MEDROL) 40 MG/ML injectionIndications :Hip bursitis Administer on office 2 mL 0 05/05/2011 Active ALPRAZolam (XANAX) 0.25 MG tablet Take 1 Tab by mouth 3 times daily as needed for Anxiety. 5 Tab 0 06/16/2011 Active Active Problems Problem Noted Date Diagnosed Date Weight gain 06/24/2010 Fatigue 06/24/2010 Screening for cervical cancer 06/24/2010 Overview (06/24/2010): 03/26 - pt told NL Resolved Problems Problem Noted Date Diagnosed Date Resolved Date Irregular labor 10/23/2008 11/12/2008 Immunizations Name Administration Dates Next Due INFLUENZA VACCINE 11/14/2010 Family History Medical History Relation Name Comments Heart Failure Maternal Grandfather MD Maternal Grandfather Heart Failure Maternal Grandmother Diabetes Paternal Grandfather Diabetes Paternal Grandmother Relation Name Status Comments Father Alive Maternal Grandfather Maternal Grandmother Mother Alive Paternal Grandfather Paternal Grandmother Sister Alive Social History Tobacco Use Types Packs/Day Years Used Date Smoking Tobacco: Never Alcohol Use Standard Drinks/Week Comments No 0 (1 standard drink = 0.6 oz pur e alcohol) Sex and Gender Information Value Date Recorded Sex Assigned at Not on file Gender Identity Not on file Sexual Orientation Not on file Last Filed Vital Signs Vital Sign Reading Time Taken Comments Blood Pressure 100/60 01/15/2011 8:24 AM CDT Pulse 89 01/15/2011 8:24 AM CDT Temperature 36.3 C (97.4 F) 01/15/2011 8:24 AM CDT Respiratory Rate 18 01/10/2010 6:07 PM CDT Oxygen Saturation 100% 01/15/2011 8:24 AM CDT Inhaled Oxygen Concentration - - Weight 85.7 kg (189 lb) 01/15/2011 8:24 AM CDT Height 167.6 cm (5' 6 ) 01/15/2011 8:24 AM CDT Body Mass Index 30.51 01/15/2011 8:24 AM CDT Plan of Treatment Health Maintenance Due Date Last Done Comments LIPID TESTING 1979 MAMMOGRAM 1979 PAP SMEAR 1979 HIV SCREENING 08/09/1994 HEPATITIS C SCREENING 08/05/1997 DTAP/TDAP/TD VACCINES (1 - Tdap) 08/09/1998 HEPATITIS B VACCINE (1 of 3 - 19+ 3-dose series) 08/09/1998 COVID-19 VACCINE (2023-2 5 season) 2023 INFLUENZA VACCINE (#1) 2023 9, 11/27/2012, 11/14/2010 DEPRESSION SCREENING 03/16/2024 ZOSTER VACCINE (1 of 2) 08/09/2029 HIB VACCINE Aged Out No longer eligi ble based on patient's age to complete this topic HPV VACCINE Aged Out No longer eligi ble based on patient's age to complete this topic MENINGOCOCCAL (Group B) VACCINE SHARED DECISION-MAKING Aged Out No longer eligible based on patient's age to complete this topic MENINGOCOCCAL GROUPS A/C/Y/W VACCINE Aged Out No longer eligible b ased on patient's age to complete this topic PNEUMOCOCCAL VACCINE Aged Out No long er eligible based on patient's age to complete this topic Advance Directives * Full Code (Latest Code Status on File) Date Activated Date Inactivated Comments 10/23/2008 8:12 AM 10/26/2008 1:59 AM * Full Code Date Activated Date Inactivated Comments 10/21/2008 12:10 PM 10/22/2008 2:42 AM Care Teams Lehr Stripper Relationship Specialty Start Date End Date Jada Savage MD PCP - General Internal Medicine 06/24/10 Jordin Quintanilla IV, MD Orthopedic Surgery 05/05/11
--- OUTSIDE RECORDS SUMMARY | 2024-06-03 14:37 | XMS_ITS | Data Portability ---
Author Organization [facility] Address [address] [place] [address] [place] [address] Care Team Providers Care Mma Fighter Name Role Phone MORENA ARIAS Primary Care Provider [phone] Assessment Encounter Date Assessment Date Assessment LastModified by Organization Details LastModified Time 04/25/2024 04/25/2024 Annual gynecological exam performed. Patient will come back in a year unless there are new symptoms. [email or web address] Not available 04/22/2024 10:23:00 Plan of Treatment Reminders Order Date Submit Date Provider Last Modified By Organization Details Last Modified Time Details Appointments IOP COLPO 2024 01:00P M Procedure Room Not available Not available Not available IOP COLPO 2024 01:00P M Monica MOREJON MD Not available Not available Not available Lab pap, IG + HR HPV - HPV regardle ss but if HPV is positive need subtypin g 16,18/45 2024 025 [facility] (Lab), [address], [place], [address], 04/29/2024 01:44:43 Referral None recorded . Procedures None recorded . Surgeries hysteros copy, with endometr ial ablation (SURG) 2024 025 [id number] Benson Morejon MD, [address], [place], [address], 06/03/2024 14:36:26 Imaging US, pelvis 2024 025 [email or web address], [address], [address], [place], [address], 05/05/2024 13:12:12 US, transvag inal 2024 025 [email or web address], [address], [address], [place], [address], 05/05/2024 13:12:12 US, pelvis, complete 2024 025 [email or web address] Not available 05/13/2024 12:33:26 Medication Orders fluconaz ole 150 mg tablet 2024 025 [facility]/Pharmacy #[id number], [address] [place] [address], [address], 06/03/2024 14:07:43 nystatin -triamci nolone 100,000 unit/gra m-0.1 % topical ointment 2024 025 [id number] [address] [place] [address], [address], 04/25/2024 15:19:11 Patient TargetsNo targets recorded. Patient InstructionsNo instructions recorded. Reason for Referral None Reported. Results Created Date Observation Date Name Description Value Unit Range Abnormal Flag Note LastModifiedBy Organization Detail LastModifiedTime 04/25/19 25 04/25/2024 IMAGE GUIDE D PAP AND HPV REGAR DLESS image guided Pap, HPV regardless of Pap result SEE RESULT S BELOW abnormal CASE REPOR T: Cytol ogy Gynec ologi rick Repor t Case: [id number] Autho rishira g Provi jamari: Dermo dy, Susannah , ANP, MACHINIST SUPERVISOR OUTSIDE Colle cted: 04/25 1453 Order ing Locat ion: [place] [facility] Recei samuel: 04/26 014 First Scree n: Shannon Burnette ay, [place] Patho logis t: Loretta Yan MD Speci men: Scree david Pap - Image d, Cervi x STATE MENT OF ADEQU ACY: Satis facto ry for evalu ation Trans forma tion zone compo nent prese nt ----- ----- ----- ----- ----- ----- ----- ----- ----- ----- ----- ----- ----- ----- ----- ----- ----- ---- FINAL DIAGN OSIS: Epith elial Cell Abnor malit y, Squam ous Cell: Low Grade Squam ous Intra epith elial Lesio n (LSIL ). Elect walter cervantes by Loretta morales MD on 2024 at [address] ----- ----- ----- ----- ----- ----- ----- ----- ----- ----- ----- ----- ----- ----- ----- ----- ----- ---- HPV RESUL TS: HPV mRNA E6/E7 : Posit heather - HPV mRNA Detec stephanie HPV GENOT YPE 16 (MICHAEL) : Not Detec stephanie HPV GENOT YPE 18/45 (MICHAEL) : Not Detec stephanie NOTE: This high risk HPV mRNA assay detec ts fourt een high- risk HPV types (16, 18, 31, 33, 35, 39, 45, 51, 52, 56, 58, 59, 66, 68) witho ut diffe renti ation . This assay can diffe renti ate HPV 16 from HPV 18/45 , but does not diffe renti ate betwe en HPV 18 and HPV 45. A negat heather HPV 16, 18/45 genot ype assay resul t does not exclu de the possi bilit y of cytol ogic abnor malit ies or of futur e or under lying HARSH 1, HARSH 3 or cance r. COMME NT: This speci men was revie wed by a Cytot echno logis t and/o r Patho logis t (as indic ated in this repor t) after evalu ation using the Thinp rep Imagi ng Syste m. CLINI RICK INFOR MATIO N: Menst rual Statu s: LMP (if appli cable ): Clini rick Histo ry/Pr eviou s Pap: Type of Neopl marcelina (if appli cable ): Signi fican t Clini rick Findi ngs: Other Histo ry: Hormo gennaro (if appli cable ): SUGGE STED FOLLO W-UP: Follo w up as warra nted, based on curre nt guide lines and indiv idual patie nt consi derat ions. Not Available [facility] (Lab) [address], [place], [address], 04/29/2024 01:44:42 05/05/19 25 05/05/2024 US, pelvi s No observ ation record ed. [email or web address] [address], [place], [address], 05/05/2024 12:06:25 05/05/19 25 05/05/2024 US, trans vagin al No observ ation record ed. [email or web address] [address], [place], [address], 05/05/2024 12:06:34 05/05/19 25 05/05/2024 US, pelvi s No observ ation record ed. [email or web address] [facility] [address], [place], [address], 05/05/2024 12:35:14 Result Notes None recorded. Procedures Surgical History Date Name Laterality Status Provider Name and Address Organization Details Recorded Time 025 Colposcopy completed Benson Morejon MD [address], [place], [address], [facility] 06/03/2024 14:42:10 025 Colposcopy completed Charlee Luna [facility] 06/03/2024 14:13:45 09/10/2 024 Date of Last Mammogram completed [facility] 04/25/2024 14:40:02 024 Breast Implants completed [facility] 04/25/2024 14:40:02 023 Date of Last Pap Smear completed [facility] 04/25/2024 14:40:02 022 Abdominoplasty completed [facility] 04/25/2024 14:40:02 022 completed [facility] 04/25/2024 14:40:02 018 Cholecystectomy completed [facility] 04/25/2024 14:40:02 016 Gastric Bypass completed [facility] 04/25/2024 14:40:02 013 Orthopedic Surgery completed [facility] 04/25/2024 14:40:02 Imaging Results Imaging Date Name Status LastModified by Organization Details LastModified Time 05/05/2024 US, pelvis completed [email or web address] [address], [place], [address], 05/05/2024 12:06:25 05/05/2024 [email or web address] [address], [place], [address], 05/05/2024 12:06:34 05/05/2024 US, pelvis completed [email or web address] [facility] [address], [place] [facility] [place], [address], 05/05/2024 12:35:14 Procedure Notes None recorded. Medical Equipment None Reported. Allergies Allergen ID Allergen Name Allergen Category Reaction Reaction Severity Criticality Documentation Date Start Date Code Code System Note Provider Name and Address Organization Details Recorded Time 88386 Bactrim medicatio n rash mild Not available 04/25/2024 52619 9 RxNorm Kiana Fernanda [facility] 14:40:01 Medications Name Sig Start Date Stop Date Status Note LastModified by Organization Details LastModified Time metformin 500 mg tablet TAKE 1 TABLET BY MOUTH TWICE A DAY WITH MEALS active Not Available Not Available No t Available azithromyci n 250 mg tablet TAKE 2 TABLETS BY MOUTH TODAY, THEN TAKE 1 TABLET DAILY FOR 4 DAYS DIRECTED 04/25 completed Not Available Not Available Not Available aspirin 325 mg tablet active Not Available Not Available No t Available fluconazole 150 mg tablet TAKE ONE TABLET BY MOUTH NOW, REPEAT IN 48 HOURS. 06/03 completed Not Available Not Available Not Available hydrocodone 5 mg-acetamin ophen 325 mg tablet TAKE 1 TABLET BY MOUTH EVERY 4 HOURS NEEDED 04/25 completed Not Available Not Available Not Available fluconazole 200 mg tablet TAKE 1 TABLET BY MOUTH EVERY SEVENTY TWO HOURS 04/25 completed Not Available Not Available Not Available Zyrtec 10 mg tablet active Not Available Not Available No t Available metronidazo le 500 mg tablet TAKE 1 TABLET BY MOUTH TWICE A DAY 04/25 completed Not Available Not Available Not Available nystatin-tr iamcinolone 100,000 unit/gram-0 .1 % topical ointment APPLY TO AFFECTED AREA TWICE A DAY active Not Available Not Available No t Available cephalexin 500 mg capsule TAKE ONE CAPSULE BY MOUTH FOUR TIMES DAILY 04/25 completed Not Available Not Available Not Available flecainide 100 mg tablet active Not Available Not Available Not Available metoprolol succinate ER 25 mg tablet,exte nded release 24 hr TAKE 1/2 TABLET BY MOUTH EVERY DAY active Not Available Not Available No t Available ipratropium bromide 42 mcg (0.06 %) nasal spray INSTILL 2 SPRAYS INTO EACH NOSTRIL 4 TIMES DAILY active Not Available Not Available No t Available ondansetron 4 mg disintegrat ing tablet TAKE 1 TABLET BY MOUTH EVERY 8 HOURS active Not Available Not Available No t Available metformin ER 500 mg tablet,exte nded release 24 hr 04/25 completed Not Available Not Available Not Available diazepam 5 mg tablet TAKE 1 TABLET BY MOUTH EVERY 8 HOURS NEEDED 04/25 completed Not Available Not Available Not Available metoclopram tomas 10 mg tablet TAKE 1 TABLET BY MOUTH BEFORE MEALS AT BEDTIME FOR NAUSEA AND VOMITING active Not Available Not Available No t Available Restasis 0.05 % eye drops in a dropperette INSTILL 1 DROP IN BOTH EYES TWICE A DAY 04/25 completed Not Available Not Available Not Available August 04/04 (21) 1 mg-20 mcg tablet TAKE 1 TABLET BY MOUTH ONCE DAILY FOR 21 DAYS, THEN 7 DAYS OFF PILLS (SEE PACKAGE INSERT) 04/25 completed Not Available Not Available Not Available bupropion HCl XL 300 mg 24 hr tablet, extended release TAKE 1 TABLET BY MOUTH EVERY DAY active Not Available Not Available No t Available bupropion HCl XL 150 mg 24 hr tablet, extended release TAKE 1 TABLET (150 MG TOTAL) BY MOUTH DAILY. OFFICE VISIT DUE FOR FURTHER REFILLS. 04/25 completed Not Available Not Available Not Available metoprolol tartrate 25 mg tablet active Not Available Not Available No t Available progesteron e active Not Available Not Available Not Available Vitamin D 5,000 unit tablet active Not Available Not Available Not Available thyroid (pork) 60 mg tablet TAKE 1 TABLET BY MOUTH EVERY DAY 30 MIN BEFORE FOOD OR COFFEE active Not Available Not Available No t Available testosteron e, micronized 0.2 % transdermal cream compounding kit active Not Available Not Available Not Available Vitals Date Recorded Body height Body mass index (BMI) Body weight Systolic blood pressure Diastolic blood pressure Provider Name and Address Organization Details Last Updated DateTime 04/25/2024 167.64 cm 22.3 kg/m2 99217.47 g 109 mm[Hg] 73 mm[Hg] Kiana Fernanda [facility] 5 14:44:24 Date Recorded Body height Body mass index (BMI) Body weight Systolic blood pressure Diastolic blood pressure Provider Name and Address Organization Details Last Updated DateTime 06/03/2024 167.64 cm 22.1 kg/m2 44885.15 g 104 mm[Hg] 63 mm[Hg] Charlee Luna [facility] 5 14:07:35 Social History Question Answer Notes LastModified by Organizat ion Details LastModified Time Do You Have An Advance Directive? No Information not available 04/25/2024 What Is Your Level Of Alcohol Consumption? Occasional [email or web address] Information not available 04/25/2024 How Many Years Have You Consumed Alcohol? 20 [email or web address] Information not available 04/25/2024 Are You Blind Or Do You Have Difficulty Seeing? No Information not available 04/25/2024 What Is Your Level Of Caffeine Consumption? Moderate [email or web address] Information not available 04/25/2024 In The 14 Days Before Symptom Onset, Have You Had Close Contact With A Laboratory-confir med COVID-19 While That Case Was Ill? No [email or web address] Information not available 04/25/2024 In The 14 Days Before Symptom Onset, Have You Had Close Contact With A Person Who Is Under Investigation For COVID-19 While That Person Was Ill? No [email or web address] Information not available 04/25/2024 Have You Been To An Area Known To Be High Risk For COVID-19? No [email or web address] Information not available 04/25/2024 Are You Deaf Or Do You Have Serious Difficulty Hearing? No [email or web address] Information not available 04/25/2024 What Type Of Diet Are You Following? REGULAR [email or web address] Information not available 04/25/2024 What Is The Highest Grade Or Level Of School You Have Completed Or The Highest Degree You Have Received? 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 No [email or web address] Information not available 04/25/2024 Do You Use Protection During Sex? No [email or web address] Information not available 04/25/2024 Do You Use Your Seat Belt Or Car Seat Routinely? Yes [email or web address] Information not available 04/25/2024 Are You Sexually Active? Yes [email or web address] Information not available 04/25/2024 Do You Have Smoke And Carbon Monoxide Detectors In Your Home? Yes [email or web address] Information not available 04/25/2024 How Much Tobacco Do You Smoke? No [email or web address] Information not available 04/25/2024 Do You Feel Stressed (tense, Restless, Nervous, Or Anxious, Or Unable To Sleep At Night)? [id number] [email or web address] Information not available 04/25/2024 Do You Use Any Illicit Or Recreational Drugs? No [email or web address] Information not available 04/25/2024 Do You Use Sunscreen Routinely? Yes [email or web address] Information not available 04/25/2024 Have You Used IV Drugs? No [email or web address] Information not available 04/25/2024 Sex: Unknown Functional Status Question Answer Note LastModified by Organizat ion Details LastModified Time Do you have difficulty walking or climbing stairs? No Information not available 04/25/2024 Are you able to walk? YESWOREST [email or web address] Information not available 04/25/2024 Are you able to care for yourself? Yes [email or web address] Information not available 04/25/2024 Do you have difficulty dressing or bathing? No [email or web address] Information not available 04/25/2024 What is your exercise level? Occasional Information not available 04/25/2024 Mental Status None recorded. Family History Relationship Description Onset Age of this Age Resolved Age Notes LastModified by Organization Details LastModified Time Paternal Aunt Malignant tumor of breast [email or web address] Not available 2024 14:40:01 Maternal Grandmother Hypertensive disorder [email or web address] Not available 2024 14:40:01 Maternal Grandfather Hypertensive disorder [email or web address] Not available 2024 14:40:01 Medical History Condition Response Heart Problems Y Polycystic ovary syndrome Y Depression/ depression Y Gynecological History Statement/Question Response Abnormal Pap Y Date of Last Mammogram 11/24/2023 Flow Light Date of LMP 06/02/2024 On BCP's at Conception? Y Was last menstrual period normal N STIs/STDs N Current Control Method Partner Vas ectomy Age at First Child 25 Are cycles usually normal N Frequency of Cycle (Q days) Sexually Active? Y Menses Monthly Y Age of first menstrual cycle 11 Date of Last Pap Smear 04/04/2022 Sexual Problems? N Desired Control Method Ablation LMP Definite 06/14/2021 Y Obstetrics History GPAL:G 3 P 2 0 1 2 Type Value Full Term 2 Induced 1 Living 2 Total 3 Past Encounters Encounter ID Performer Location Encounter Start Date Encounter Closed Date Diagnosis/Indication Diagnosis SNOMED-CT Code Diagnosis ICD10 Code Diagnosis Note [id number] MAYURI GARBER [address] [address] 04/25/2024 14:33:18 04/25/2024 16:37:36 Gynecologic examination 71978243 Z01.419 Annual gynecologi rick exam performed. Patient will come back in a year unless there are new symptoms. Suggest Calcium with Vitamin D if not eating in diet. Patient advised to get annual flu shot. Recommend yearly physicals and perform monthly breast exams. Genetic testing is available for patients with family history of cancer. Engage in safe sexual practices, use condoms. Encouraged to have daily exercise. Avoid tobacco and illicit drugs, moderation of alcohol. If BMI greater than 25 dietary consult advised. If you have any questions please call or email. mammogram- [facility] PCP orders colon cancer screening - Pt has scheduled at [facility] - PCP orders DEXA scan- n/a Pap smear- pap w/ HPV collected laboratory evaluation - PCP STI testing - declined Irregular periods 642506 07 N92.6 Discussed that use of HRT while perimenopa usal can cause irregular bleeding/s potting. Recommende d checking pelvic ultrasound to r/o abnormalit ies.Discus sed hormonal vs surgical treatment options for abnormal bleeding. Patient interested in endometria l ablation.P atient to see Dr. Morejon after pelvic ultrasound for surgical consult. Vaginal irritation 11201 6004 N89.8 Discussed empirical treatment with fluconazol e and nystatin/t riamcinolo ne ointment for suspected yeast infection based on reported symptoms and physical exam findings.D iscussed vulvar care guidelines in addition to laundry/sk in irritants to avoid. [id number] Migdalia Xavier [facility] [address] [address] 05/05/2024 11:17:08 05/05/2024 12:01:41 Irregular periods 99432201 N92.6 [id number] Benson Morejon MD [facility] [address] [address] 06/03/2024 13:54:42 06/03/2024 14:43:55 Menorrhagia 676528953 N92.0 This patient is a 43-year-ol d female presents for heavy vaginal bleeding. She has longstandi ng very heavy bleeding. Her menses are regular. However, they require double protection . Patient has accidents, getting blood on her bedding and clothing. Is affected work. She changes a pad or tampon every hour. She leaks blood around the pad and tampon. This bleeding has a profound impact on her quality of life and her activities of daily living. we discussed treatment options. She would like to proceed endometria l ablation. .hernandez Dysplasia of cervix 7339 1008 N87.9 Colposcopy was performed she tolerated well. Mild dysplasia likely. Health Concerns Section Related Observation LastModified by Organization Detai ls LastModified Time None Recorded Concern Status LastModified by Organization Details LastModified Time None Recorded Advance Directives Directive N: Payers Encounter Date Sequence Insurance Name Policy Number Policy Cobb Covered Member ID Cobb Member ID Guarantor Name 04/25/2024 1 [id number] Adia Hilmes [id number] Adia Hilmes 05/05/2024 1 UMR [id number] Adia Hilmes [id number] Adia Hilmes 06/03/2024 1 UMR [id number] Adia Hilmes [id number] Adia Hilmes Notes Date Note Type Note Provider Name and Address Organization Details Recorded Time 04/25/2024 text/html Annual GYNReport ed bypatient.History:no gynecologic complaints Menstrual cycle:Irregular cycle intervals Urinary symptoms:No hematuria; No incontinence Vulva:No genital lesion Vagina:Normal vaginal discharge Breast:No breast pain; No breast lump; No nipple discharge Current Contraception:Partne r had vasectomy Sexual complaints:No sexual complaints; No pain during intercourse; Normal libido Menopausal Symptoms:No menopausal symptoms; Normal vaginal lubrication Psychological symptoms:No depression; No anxiety; No PMDD Preventive measures:Encourage self breast examination; Encourage regular exercise; Encourage no tobacco use; Encourage regular mammograms starting age 40 New patient presents to establish care.Patient started on HRT two years ago from Dr. Sindy Gerardo at [facility]. Patient currently taking progesterone, testosterone, metformin, and bovine thyroid supplement to treat PCOS. Patient states that her periods are now irregular and she spots intermittently throughout each month since starting HRT.Patient interested in endometrial ablation. had vasectomy.Patient has tried both copper and Mirena IUDs in the past. SUSANNAH YI NP [address], [place], [address], [facility] 04/25/2024 16:36:34 06/03/2024 text/html this patient is a 43-year-old female presents for colposcopic examination. The procedure was explained to the patient in detail. She understands the procedure. She understands the risks, benefits, and alternatives. She has completed the informed consent process and is ready to proceed. Benson Morejon MD [address], [place], [address], [facility] 06/03/2024 14:43:37 OBGyn Episode Ob Episode Information Episode Created Date Number of Fetuses Patient Bloodtype Patient rh Status Prepregnancy Weight lbs Domestic Partner Domestic Partner Phone Father Name Repairer Evaporator Status 04/25/19 25 1 CLOSED Fetus Data First Name Last Name Admitted to NICU Weight (g) Sex Living Outcome Pediatric Complications Fetus ID Race Codes Race Delivery Type [phone] 6 F Full Term [id number] Vaginal Delivery Familia Calculation Initial Familia Date Initial Exam Date Initial Exam Provider Initial Ultrasound Date Last Menstrual Period Date Ultra Sound Weeks Gestation 0 Eighteen To Twenty Week Familia Update Ultra Sound Date Fundal Height At Umbil Quickening Date Ultra Sound Latest Weeks Gestation Final Familia Confirmed By Final Familia Confirmed Date Final Familia Date Ultra Sound Latest Days Gestation 0 0 Menstrual History Last Menstrual Date Menses Monthly On Bcp Conception Prior Menses Frequency Hcg Plus Date Menarche Onset Age Delivery Information Delivery Date Delivery Type Labor Anesthesia Weeks Gestation Incision Type Labor Labor Length Hrs Delivered By Post Complications Tubal Sterilization Discharge Date Comments 9 39 Discharge Information Feeding Method Contraceptive Method Maternal HG B and HCT Levels Ob Episode Information Episode Created Date Number of Fetuses Patient Bloodtype Patient rh Status Prepregnancy Weight lbs Domestic Partner Domestic Partner Phone Father Name Repairer Evaporator Status 04/25/19 25 1 CLOSED Fetus Data First Name Last Name Admitted to NICU Weight (g) Sex Living Outcome Pediatric Complications Fetus ID Race Codes Race Delivery Type , Induced [id number] Familia Calculation Initial Familia Date Initial Exam Date Initial Exam Provider Initial Ultrasound Date Last Menstrual Period Date Ultra Sound Weeks Gestation 0 Eighteen To Twenty Week Familia Update Ultra Sound Date Fundal Height At Umbil Quickening Date Ultra Sound Latest Weeks Gestation Final Familia Confirmed By Final Familia Confirmed Date Final Familia Date Ultra Sound Latest Days Gestation 0 0 Menstrual History Last Menstrual Date Menses Monthly On Bcp Conception Prior Menses Frequency Hcg Plus Date Menarche Onset Age Delivery Information Delivery Date Delivery Type Labor Anesthesia Weeks Gestation Incision Type Labor Labor Length Hrs Delivered By Post Complications Tubal Sterilization Discharge Date Comments 0 Discharge Information Feeding Method Contraceptive Method Maternal HG B and HCT Levels Ob Episode Information Episode Created Date Number of Fetuses Patient Bloodtype Patient rh Status Prepregnancy Weight lbs Domestic Partner Domestic Partner Phone Father Name Repairer Evaporator Status 04/25/19 25 1 CLOSED Fetus Data First Name Last Name Admitted to NICU Weight (g) Sex Living Outcome Pediatric Complications Fetus ID Race Codes Race Delivery Type 4393.94 5704 M Full Term [id number] Vaginal Delivery Familia Calculation Initial Familia Date Initial Exam Date Initial Exam Provider Initial Ultrasound Date Last Menstrual Period Date Ultra Sound Weeks Gestation 0 Eighteen To Twenty Week Familia Update Ultra Sound Date Fundal Height At Umbil Quickening Date Ultra Sound Latest Weeks Gestation Final Familia Confirmed By Final Familia Confirmed Date Final Familia Date Ultra Sound Latest Days Gestation 0 0 Menstrual History Last Menstrual Date Menses Monthly On Bcp Conception Prior Menses Frequency Hcg Plus Date Menarche Onset Age Delivery Information Delivery Date Delivery Type Labor Anesthesia Weeks Gestation Incision Type Labor Labor Length Hrs Delivered By Post Complications Tubal Sterilization Discharge Date Comments 6 38 Discharge Information Feeding Method Contraceptive Method Maternal HG B and HCT Levels
--- OUTSIDE RECORDS SUMMARY | 2024-06-03 14:37 | XMS_ITS | Encounter Summary ---
Author Organization [facility] Address [address] [place] [address] Care Team Providers Care Incident Response Specialist Name Role Phone Adelita Duggan Primary Care Provider [phone] Estuardo Agee MD Unavailable [phone] Encounter Details Date Type Department Care Team (Late st Contact Info) Description 03/30/2012 Abstract [facility] Conversion , Generic Conversion, Social History Tobacco Use Types Packs/Day Years Used Date Smoking Tobacco: Never Assessed Comments Unknown Sex and Gender Information Value Date Recorded Sex Assigned at Not on file Legal Sex Female 6:32 PM CDT Gender Identity Not on file Sexual Orientation Not on file documented as of this encounter Plan of Treatment Not on file documented as of this encounter Visit Diagnoses Not on filedocumented in this encounter Care Teams Incident Response Specialist Relationship Specialty Start Date End Date Adelita Duggan FNP [address] [place] [address] [place] [address] PCP - General Nurse Practitioner Family 03/19/18 Estuardo Agee MD Three [facility]. [facility] [address] [place] [address] [place] [employer] Attendant CARDIOVASCULAR DISEASE 06/17/18 documented as of this encounter
--- OUTSIDE RECORDS SUMMARY | 2024-06-03 14:38 | XMS_ITS | Continuity of Care Document ---
Author Organization [facility] [place] Address [address] [place] [address] [place] [address] Care Team Providers Care Software Engineering Specialist Name Role Phone MORENA ARIAS Primary Care Provider Assessment No assessment recorded. Plan of Treatment Reminders Order Date Submit Date Provider Last Modified By Organization Details Last Modified Time Details Appointments IOP COLPO 2024 01:00P M Procedure Room Not available Not available Not available IOP COLPO 2024 01:00P M Monica SOSA MD Not available Not available Not available Lab None recorded . Referral None recorded . Procedures None recorded . Surgeries hysteros copy, with endometr ial ablation (SURG) 2024 025 [id number] Benson Sosa MD, [address], [place], [address], 06/03/2024 14:36:26 Imaging None recorded . Medication Orders None recorded . Patient TargetsNo targets recorded. Patient InstructionsNo instructions recorded. Reason for Referral None Reported. Procedures Surgical History Date Name Laterality Status Provider Name and Address Organization Details Recorded Time 025 Colposcopy completed Benson Sosa MD [address], [place], [address], [facility] 06/03/2024 14:42:10 025 Colposcopy completed Charlee Luna [facility] 06/03/2024 14:13:45 024 Date of Last Mammogram completed Kiana Michael [facility] 04/25/2024 14:40:02 024 Breast Implants completed [facility] 04/25/2024 14:40:02 023 Date of Last Pap Smear completed [facility] 04/25/2024 14:40:02 022 Abdominoplasty completed [facility] 04/25/2024 14:40:02 022 completed [facility] 04/25/2024 14:40:02 018 Cholecystectomy completed [facility] 04/25/2024 14:40:02 016 Gastric Bypass completed [facility] 04/25/2024 14:40:02 013 Orthopedic Surgery completed [facility] 04/25/2024 14:40:02 Imaging Results None recorded. Procedure Notes None recorded. Medical Equipment None Reported. Allergies Allergen ID Allergen Name Allergen Category Reaction Reaction Severity Criticality Documentation Date Start Date Code Code System Note Provider Name and Address Organization Details Recorded Time 78182 Bactrim medicatio n rash mild Not available 04/25/2024 [address] [facility] 14:40:01 Medications Name Sig Start Date [...] completed Not Available Not Available Not Available 04/04 (21) 1 mg-20 mcg tablet TAKE [...] Updated DateTime 06/03/2024 167.64 cm 22.1 kg/m2 72109.15 g 104 mm[Hg] 63 mm[Hg] Charlee Luna [facility] 14:07:35 Social History Question Answer Notes LastModified by Organizat ion Details LastModified Time Do You Have An Advance Directive? No [email or web address] Information not available 04/25/2024 What Is Your Level Of Alcohol Consumption? Occasional [email or web address] Information not available 04/25/2024 How Many Years Have You Consumed Alcohol? 20 [email or web address] Information not available 04/25/2024 Are You Blind Or Do You Have Difficulty Seeing? No [email or web address] Information not available 04/25/2024 What Is Your Level Of Caffeine Consumption? Moderate [email or web address] Information not available 04/25/2024 In The 14 Days Before Symptom Onset, Have You Had Close Contact With A Laboratory-confir med COVID-19 While That Case Was Ill? No [email or web address] Information not available 04/25/2024 In The 14 Days Before Symptom Onset, Have You Had Close Contact With A Person Who Is Under Investigation For COVID-19 While That Person Was Ill? No [email or web address] Information not available 04/25/2024 Have You Been To An Area Known To Be High Risk For COVID-19? No [email or web address] Information not available 04/25/2024 Are You Deaf Or Do You Have Serious Difficulty Hearing? No [email or web address] Information not available 04/25/2024 What Type Of Diet Are You Following? REGULAR [email or web address] Information not available 04/25/2024 What Is The Highest Grade Or Level Of School You Have Completed Or The Highest Degree You Have Received? 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 No [email or web address] Information not available 04/25/2024 Do You Use Protection During Sex? No [email or web address] Information not available 04/25/2024 Do You Use Your Seat Belt Or Car Seat Routinely? Yes [email or web address] Information not available 04/25/2024 Are You Sexually Active? Yes Information not available 04/25/2024 Do You Have Smoke And Carbon Monoxide Detectors In Your Home? Yes [email or web address] Information not available 04/25/2024 How Much Tobacco Do You Smoke? No [email or web address] Information not available 04/25/2024 Do You Feel Stressed (tense, Restless, Nervous, Or Anxious, Or Unable To Sleep At Night)? [id number] [email or web address] Information not available 04/25/2024 Do You Use Any Illicit Or Recreational Drugs? No [email or web address] Information not available 04/25/2024 Do You Use Sunscreen Routinely? Yes [email or web address] Information not available 04/25/2024 Have You Used IV Drugs? No [email or web address] Information not available 04/25/2024 Sex: Unknown Functional Status Question Answer Note LastModified by Organizat ion Details LastModified Time Do you have difficulty walking or climbing stairs? No [email or web address] Information not available 04/25/2024 Are you able to walk? YESWOREST [email or web address] Information not available 04/25/2024 Are you able to care for yourself? Yes [email or web address] Information not available 04/25/2024 Do you have difficulty dressing or bathing? No [email or web address] Information not available 04/25/2024 What is your exercise level? Occasional [email or web address] Information not available 04/25/2024 Mental Status None recorded. Family History Relationship Description Onset Age of this Age Resolved Age Notes LastModified by Organization Details LastModified Time Paternal Aunt Malignant tumor of breast [email or web address] Not available 2024 14:40:01 Maternal Grandmother Hypertensive disorder [email or web address] Not available 2024 14:40:01 Maternal Grandfather Hypertensive disorder [email or web address] Not available 2024 14:40:01 Medical History Condition [...] SNOMED-CT Code Diagnosis ICD10 Code Diagnosis Note [id number] Benson Sosa MD [place] [address] [address] 06/03/2024 13:54:42 06/03/2024 14:43:55 Menorrhagia [id number] N92.0 This patient is a 43-year-ol d [...] by Organization Details LastModified Time None Recorded Payers Encounter Date Sequence Insurance Name Policy Number Policy Cobb Covered Member ID Cobb Member ID Guarantor Name 06/03/2024 1 [employer] [id number] Adia Hancock [id number] Adia Hancock Notes Date Note Type Note Provider Name and Address Organization Details Recorded Time 06/03/2024 text/html this patient is a 43-year-old female presents for colposcopic examination. The procedure was explained to the patient in detail. She understands the procedure. She understands the risks, benefits, and alternatives. She has completed the informed consent process and is ready to proceed. Benson Sosa MD [address], [place], [address], [facility] 06/03/2024 14:43:37 OBGyn Episode No OBEpisode recorded.
--- OUTSIDE RECORDS SUMMARY | 2024-06-03 14:38 | XMS_ITS ---
Author Organization [facility] Address [address] [place] [address] Care Team Providers Care Business Liaison Manager Name Role Phone Michael Woods Unavailable [phone] REASON FOR VISIT DIRECTOR OF EDUCATION BHRT/Pellet Insertion #1, [facility] BHRT new patient visit, concerned things aren't right and wants to be assessed for hormone/endocrine problems Problems Problem Type SNOMED Code ICD Code Onset Dates Problem Status W/U Status Risk Notes Problem Affective psychosis (673032373) Unspecified mood [affective] disorder (F39) Active confirmed Problem Adjustment disorder with anxiety (37120426) Adjustment disorder with anxiety (F43.22) Active confirmed Problem Amnesia (62304770) Other amnesia (R41.3) Active confirmed Encounters Encounter Location Date Provider Diagnosis [facility] [place] ([address]) [address] [address] 05/13/2023 Michael Woods Decreased libido R68.82 ; Irritability and anger R45.4 ; Unspecified mood [affective] disorder F39 ; Adjustment disorder with anxiety F43.22 ; Other fatigue R53.83 ; Other malaise R53.81 ; Abnormal weight gain R63.5 ; Other amnesia R41.3 and Pain in unspecified joint M25.50 Assessments Encounter Date Diagnosis (ICD Code) Assessment Notes Treatment Notes Treatment Clinical Notes Section Notes 05/13/2023 Decreased libido (ICD-10 - R68.82) See patient DS dosing, scanned in record. Adia is a [employer] provider. No charge consultation. Charge for pellet insertion is $150.00 05/13/2023 Irritability and anger (ICD-10 - R45.4) 05/13/2023 Unspecified mood [affective] disorder (ICD-10 - F39) 05/13/2023 Adjustment disorder with anxiety (ICD-10 - F43.22) 05/13/2023 Other fatigue (ICD-10 - R53.83) 05/13/2023 Other malaise (ICD-10 - R53.81) 05/13/2023 Abnormal weight gain (ICD-10 - R63.5) 05/13/2023 Other amnesia (ICD-10 - R41.3) 05/13/2023 Pain in unspecified joint (ICD-10 - M25.50) Plan Of Treatment Treatment Notes Assessment Notes Decreased libido See patient DS dosin g, scanned in record. Adia is a [employer] provider. No charge consultation. Charge for pellet insertion is $150.00 Next Appt Details Follow Up: 3 months, Reason: BHRT Pellet Insertion #2 Procedure Notes * Category Sub-Category Detail Notes [facility]: Metabolic, Hormone, BHRT Pellet Insertion Female Pellet Insertion Testosterone Pellet 1: TESTOSTERONE 37.5 mg (C-III) Lot Number:: [id number] Expiration:: 09/26/2023 Testosterone Pellet 2: TESTOSTERONE 87.5 mg (C-III) Lot Number:: [id number] Expiration:: 09/25/2023 Estrogen Pellet: None Insertion Site:: Right buttock (upper ou ter quadrant) Procedure Note:: The left bu ttock was sterilized and draped, The right buttock was sterilized and draped, The insertion site was anesthetized with a mixture of 1% lidocaine, 1% lidocaine with epinephrine and sodium bicarbonate, A scalpel was used to make a 5 mm incision, The trocar was inserted in the line of anesthetized tissue and the pellet(s) were inserted, The trocar was removed and a 2X2 dressing was placed over the site and pressure was held for 3 minutes, The 2x2 was then disposed and site was closed with a single Steri-Strip and a fresh folded 2X2 was placed on top of the Steri-Strip and site closed with alternating tension with a Tegaderm, Post-care instruction were provided, and no submersion or LE exercise for at least 72 hours, Report any wound changes, constitutional symptoms or pellet extrusion(s). Progress Notes * Michelle HANCOCK:1980 ( 42 yo F)Acc No.[id number]:05/13/2023 DIRECTOR OF EDUCATION BHRT Patient: Adia BERMAN Provider: Gautam Woods MD :1980 A ge:42 Y S ex:Female Date:05/13/2023 Address:[address] [place] [address], [facility] Subjective: * Chief Complaints: * N P BHRT/Pellet Insertion #1Quell BHRT new patient visit, concerned things aren't right and wants to be assessed for hormone/endocrine problems * HPI: * Wellness & Aesthetics: The risks, benefits & alternatives were discussed regarding available treatment options. A treatment path was determined after reviewing the patients medical records, our verbal discussions and via joint decision-making Consents for our planned treatments were signed and are on file. * Medical History: * Surgical History: * Hospitalization/Major Diagno stic Procedure: * Medications: Objective: Assessment: * Assessment: 1. D ecreased libido - R68.82 2 . I rritability and anger - R45.4 3 . U nspecified mood [affective] disorder - F39 4 . A djustment disorder with anxiety - F43.22 5 .?Other fatigue - R53.83 6 . O ther malaise - R53.81 7 . A bnormal weight gain - R63.5 8 . O ther amnesia - R41.3 9 . P ain in unspecified joint - M25.50 Plan: * Treatment: * Procedures: Q uell: BHRT Pellet Insertion: Female Pellet Insertion T estosterone Pellet 1 T ESTOSTERONE 37.5 mg (C-III) L ot Number: [id number] E xpiration: 0 09/26/2023 T estosterone Pellet 2 T ESTOSTERONE 87.5 mg (C-III) L ot Number: [id number] E xpiration: 0 09/25/2023 E strogen Pellet N one I nsertion Site: R ight buttock (upper outer quadrant) P rocedure Note: T he left buttock was sterilized and draped, The right buttock was sterilized and draped, The insertion site was anesthetized with a mixture of 1% lidocaine, 1% lidocaine with epinephrine and sodium bicarbonate, A scalpel was used to make a 5 mm incision, The trocar was inserted in the line of anesthetized tissue and the pellet(s) were inserted, The trocar was removed and a 2X2 dressing was placed over the site and pressure was held for 3 minutes, The 2x2 was then disposed and site was closed with a single Steri-Strip and a fresh folded 2X2 was placed on top of the Steri-Strip and site closed with alternating tension with a Tegaderm, Post-care instruction were provided, and no submersion or LE exercise for at least 72 hours, Report any wound changes, constitutional symptoms or pellet extrusion(s). * Procedure Codes: 0 0010 Weight Loss (misc.), Units: 2.50 * Follow Up: 3 months (Reason: BHRT Pellet Insertion #2) * Billing Information: * Visit Code: * Procedure Codes: 28202 Weight Loss (misc.). Units: 2.50. * DE TESTER Sign off status: Completed true * Provider: Gautam Woods MD Date: 0 05/13/2023 Generated for Maykel davis/Vero/Tonoitting on: 0 06/03/2024 02:37 PM CDT History and Physical Notes * HPI (History of Present Illness) Category Sub-Category Detail Notes Category Not es *Wellness & Aesthetics The r isks, benefits & alternatives were discussed regarding available treatment options. A treatment path was determined after reviewing the patients medical records, our verbal discussions and via joint decision-making Consents for our planned treatments were signed and are on file
--- OUTSIDE RECORDS SUMMARY | 2024-06-03 14:38 | XMS_ITS | Encounter Summary ---
Author Organization [facility] Address [address] [place] [address] Care Team Providers Care Gut Carrier Name Role Phone Adelita Duggan Primary Care Provider [phone] Estuardo Agee MD Unavailable [phone] Encounter Details Date Type Department Care Team (Late st Contact Info) Description 10/10/2015 Abstract [facility] Conversion , Generic Conversion, Social History [...] on filedocumented in this encounter Care Teams Gut Carrier Relationship Specialty Start Date End Date Adelita Duggan FNP [address] [place] [address] [place] [address] PCP - General Nurse Practitioner Family 03/19/18 Estuardo Agee MD Three [facility]. [facility] [address] [place] [address] [employer] CARDIOVASCULAR DISEASE 06/17/18 documented as of this encounter
--- OUTSIDE RECORDS SUMMARY | 2024-06-03 14:38 | XMS_ITS | Patient Health Record ---
Author Organization [facility] Address [address] [place] [address] Support Name Relationship Address Phone Adia Hancock Guarantor Unknown [phone] Reason For Referral No Information Problems Problem Type SNOMED Code ICD Code Onset Dates Problem Status W/U Status Risk Notes Problem Affective psychosis (017513515) Unspecified mood [affective] disorder (F39) Active confirmed Problem Adjustment disorder with anxiety (96977415) Adjustment disorder with anxiety (F43.22) Active confirmed Problem Amnesia (56387742) Other amnesia (R41.3) Active confirmed Plan Of Treatment No Information
--- OUTSIDE RECORDS SUMMARY | 2024-06-03 14:38 | XMS_ITS | Encounter Summary ---
Author Organization [facility] Address [address] [place] [address] Care Team Providers Care Merchandising Representative Name Role Phone Adelita Duggan Primary Care Provider [phone] Estuardo Agee MD Unavailable [phone] Encounter Details Date Type Department Care Team (Late st Contact Info) Description 08/29/2015 Abstract [facility] Conversion , Generic Conversion, [...] on filedocumented in this encounter Care Teams Merchandising Representative Relationship Specialty Start Date End Date Adelita Duggan FNP [address] [place] [address] [place] [address] PCP - General Nurse Practitioner Family 03/19/18 Estuardo Agee MD Three [facility]. [facility] [address] [place] [address] Silver Electronic Die Maker CARDIOVASCULAR DISEASE 06/17/18 documented as of this encounter
--- OUTSIDE RECORDS SUMMARY | 2024-06-03 14:38 | XMS_ITS | Clinical Summary ---
Author Organization [facility] Address [address] [place] [address] Care Team Providers Care Lubricating Engineer Name Role Phone Duggan Adelita JASMINE Primary Care Provider [phone] Estuardo Agee MD Unavailable [phone] Allergies Active Allergy Reactions Criticality Noted Date Comments Sulfamethoxazole-Trimethoprim Rash,Hives Low 2012 Medications cetirizine (ZYRTEC) 10 MG tablet Take 1 tablet (10 mg total) by mouth daily. Active RESTASIS 0.05 % ophthalmic emulsion Place 1 drop into both eyes. 11/27/19 21 Active SUMAtriptan (IMITREX) 50 MG tabletIndications :Migraine without aura and without status migrainosus, not intractable TAKE 1 TABLET NEEDED FOR MIGRAINE. MAY REPEAT IN 2 HOURS IF NEEDED 9 tablet 1 08/19/19 23 Active metoprolol succinate ER (TOPROL-XL) 25 MG 24 hr tablet Take 0.5 tablets (12.5 mg total) by mouth daily. 01/12/20 23 Active flecainide (TAMBOCOR) 50 MG tablet Take 1 tablet (50 mg total) by mouth 2 (two) times daily. 09/15/19 23 Active thyroid (LOFT WORKER APPRENTICE THYROID) 60 MG OR tablet Take 1 tablet (60 mg total) by mouth daily. 04/27/19 23 Active testosterone-prog esterone, 45-5 mg/g, Cream 04/30/19 23 Active aspirin 325 MG tablet Take 1 tablet (325 mg total) by mouth daily. Active buPROPion XL (WELLBUTRIN XL) 300 MG 24 hr tabletIndications :Seasonal affective disorder Take one daily 90 tablet 3 04/06/19 25 Active ondansetron (ZOFRAN-ODT) 4 MG disintegrating tablet Take 1 tablet (4 mg total) by mouth every 8 (eight) hours as needed for Nausea. 05/16/19 25 Active ipratropium (ATROVENT) 0.06 % nasal spray INSTILL 2 SPRAYS INTO EACH NOSTRIL 4 TIMES DAILY 05/20/19 25 Active metFORMIN (GLUCOPHAGE) 500 MG tablet Take 1 tablet (500 mg total) by mouth 2 (two) times daily with meals. 03/29/19 25 Active nystatin-triamcin olone (MYCOLOG) ointment Apply topically 2 (two) times daily. APPLY TO AFFECTED AREA 04/25/19 25 Active metFORMIN ER (GLUCOPHAGE-XR) 500 MG 24 hr tablet Take 1 tablet (500 mg total) by mouth daily. 03/16/19 24 025 Discontinued Active Problems Problem Noted Date Diagnosed Date Paroxysmal atrial fibrillation ([facility]) 08/12/2023 Atrial fibrillation ([facility]) 06/28/2022 History of PCOS 04/30/2022 Chronic neck pain 10/02/2021 Epigastric pain 10/02/2021 Status post bariatric surgery 10/02/2021 Palpitations 07/22/2018 Migraine without aura and wi thout status migrainosus, not intractable 03/31/2018 Seasonal affective disorder 02/19/2017 Overview (03/31/2018): Date Onset: 02/19/2017 Arthralgia of hip 08/29/2011 Resolved Problems Problem Noted Date Diagnosed Date Resolved Date Acquired hypothyroidism 07/07/201907/15 Snoring 01/01/2015 04/23/2021 Gastroesophageal reflux disease 01/01/2015 04/23/2021 Encounters Date Type Department Care Team Description 06/01/2024 9:40 AM CDT Office Visit [address] [place] [address] Adelita Duggan, [facility] F/U ([facility] 05/15/24) 06/01/2024 Travel 04/29/2024 Scan [facility] Scanned, [facility] 04/06/2024 11:00 AM CUSTOMER SOLUTIONS SPECIALIST Office Visit [address] [place], [place] [address] Adelita Duggan FNP Follow Up (Pt is here for a medication management f/u, Pt states she is doing well) 04/06/2024 Travel from Last 3 Months Immunizations Name Administration Dates Next Due Flucelvax 2 YRS+ (Multi-Dose Vial) 12/24/2018 Influenza (Generic) 12/30/2018, 9,11/27/2012, 011 Influenza Adult (Generic) 12/14/2021,,12/30/2018, 019,11/27/2012 PFIZER COVID-19 (DUGGAN CAP), MRNA, LNP-S, PF, 30 MCG/0.3 ML HAYDEE-SUCROSE, IM 04/23/2021 Tdap (Generic) 08/20/2015,08/20/2015 Family History Medical History Relation Comments Alcohol Abuse Maternal Grandfather Heart Attack Maternal Grandfather Hypertension Maternal Grandmother Relation Status Comments Father Alive Maternal Grandfather (Age 64) Maternal Grandmother (Age 64) Mother Alive Paternal Grandfather Alive Paternal Grandmother Sister 1 Alive Sister 2 Alive Social History Tobacco Use Types Packs/Day Years Used Date Smoking Tobacco: Never Smokeless Tobacco: Never Tobacco Cessation:Counseling Given: No Comments:pcp Alcohol Use Standard Drinks/Week Comments Yes 1 (1 standard drink = 0.6 oz pur e alcohol) AUDIT-C Answer Date Recorded Frequency of Alcohol Consumption Never 03/31/2018 Average Number of Drinks Not on file 019 Frequency of Binge Drinking Not on file 03/16 PHQ-2 Answer Date Recorded Patient Health Questionnaire-2 Score 0 04/06/2024 Comments No Sex and Gender Information Value Date Recorded Sex Assigned at Not on file Legal Sex Female 6:32 PM CDT Gender Identity Not on file Sexual Orientation Not on file 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 on file Not on file Not on fi le Last Filed Vital Signs Vital Sign Reading Time Taken Comments Blood Pressure 92/54 06/01/2024 9:46 AM CDT Pulse 85 06/01/2024 9:46 AM CDT Temperature 36.6 C (97.8 F) 06/01/2024 9:46 AM CDT Respiratory Rate 16 06/01/2024 9:46 AM CDT Oxygen Saturation 98% 06/01/2024 9:46 AM CDT Inhaled Oxygen Concentration - - Weight 63.2 kg (139 lb 6.4 oz) 06/01/2024 9:46 A M CDT Height 167.6 cm (5' 6 ) 06/01/2024 9:46 AM CDT Body Mass Index 22.5 06/01/2024 9:46 AM CDT Plan of Treatment Health Maintenance Due Date Last Done Comments Hepatitis C 08/09/1997 Hepatitis B Vaccines (1 of 3 - 19+ 3-dose series) 08/09/1998 Annual Physical 04/09/2023 04/09/2022, 01/10/2020 COVID-19 Vaccine ( season) 2023 04/23/2021, 03/23/2020, 03/02/2020 DTaP, Tdap and Td Vaccines (3 - Td or Tdap) 08/19/2025 08/20/2015, 08/20/2015 Mammogram Screening 01/26/2026 01/27/2024, 10/02/2022, 06/05/2021, Additional history exists Cervical Cancer Screening Pap Smear (Age 30 to 64) Every 3 Years 04/25/2027 04/25/2024, 04/09/2022, 01/10/2020 Cervical Cancer Screening Pap with HPV Testing (Age 30 to 64) Every 5 Years 04/25/2029 04/25/2024, 01/10/2020 Cervical Cancer Screening with HPV 04/25/2029 Influenza Adult Completed 03/05/2024, 1003/2021, 01/06/2020, Additional history exists PHQ-2 (Physician [employer]) Completed 04/06/2024 HPV Vaccines Aged Out No longer eligi ble based on patient's age to complete this topic Meningococcal B Vaccine Aged Out No l onger eligible based on patient's age to complete this topic Meningococcal Vaccine Aged Out No pema fortino eligible based on patient's age to complete this topic Pneumococcal Vaccine: Pediatrics (0 to 5 Years) and At-Risk Patients (6 to 64 Years) Aged Out No longer eligible based on patient's age to complete this topic RSV Immunizations Under 20 Months Aged Out No longer eligible based on patient's age to complete this topic Procedures Procedure Name Priority Date/Time Associated Diagnosis Comments MAMMOGRAM GENERIC (SCAN ORDER) 01/27/2024 CYTOPATH CERV/VAG THIN LAYER Routine 04/09/2022 9:15 AM CUSTOMER SOLUTIONS SPECIALIST Pap smear for cervical cancer screening HPV MRNA E6/E7 Routine 01/10/2020 2:09 PM CDT from Last 3 Months or Most Recently Relevant to Health Maintenance Results * MAMMOGRAM GENERIC (SCAN ORDER) (01/27/2024) Anatomical Region Laterality Modality Other 01/27/2024 us [facility] Scanned SCANNING Final Resu lt * Cytopath Cerv/Vag Thin Layer (04/09/2022 9:15 AM CUSTOMER SOLUTIONS SPECIALIST) THIN PREP PAP [address] [id number] Department of Pathology Pathology Report CERVICAL/VAGINAL PAP SMEAR REPORT Name: ESTRELLITA HANCOCK Age: 5 1980 (Age: 41) Location: [facility] Sex: F Collected Date: 04/09/2022 [facility] #: [id number] Date Received: 04/11/2022 Date Reported: 04/14/2022 Provider: ADELITA DUGGAN CANDLE MOLDER-C INTERPRETATION CERVICAL/ENDOCERVI YULI: SATISFACTORY FOR EVALUATION. ENDOCERVICAL/TRANS FORMATION ZONE COMPONENT PRESENT. NEGATIVE FOR INTRAEPITHELIAL LESION OR MALIGNANCY. REACTIVE SQUAMOUS CELLS. Electronically Signed Out Sarah Moore M.D. CHANDA Yung (ASCP) CLINICAL HISTORY Z12.4 SCREENING PAP TEST ThinPrep Pap Test with HR HPV testing in patient > 21 years with ASC-US diagnosis. Date of Last Menstrual Period: 03/15/22 Menstrual Status: Regular SPECIMEN SUBMITTED CERVICAL/ENDOCERVI YULI Specimen Received:1 Thin Prep Vial, Image Assisted Pap (SMD) Please note: The Pap smear is not a diagnostic test. It is a screening test. Negative results on combined screening (Pap test and HPV-DNA) have a high negative predictive value (99.1-100 percent) for cervical cancer. The pap test is not effective in detecting cervical adenocarcinoma. [facility] 04/09/2022 9:15 AM CUSTOMER SOLUTIONS SPECIALIST 04/11/2022 9:15 AM CUSTOMER SOLUTIONS SPECIALIST Comment:CERVICAL/ENDOCERVICA L Adelita Duggan CANDLE MOLDER PATHOLOGY/CYTOLOGY ORDERABLES Final Result [facility] [address] [place] [address], * HPV MRNA E6/E7 (01/10/2020 2:09 PM CDT) HPV MRNA E6/E7 Not Detected NOT DETECTED 01/19/2020 1:35 PM CUSTOMER SOLUTIONS SPECIALIST [facility] [place] Comment: This test was performed using the APTIMA(R) HPV Assay ([employer] This assay detects E6/E7 viral messenger RNA (mRNA) from 14 high-risk HPV types (16,18,31,33,35,39,45,51, 52,56,58,59,66,68). For additional information please refer to: http://education.[employer]/faq/IXV856w0 (This link is being provided for informational/ educational purposes only.) The analytical performance characteristics of this assay have been determined by [facility] [place], [place]. The modifications have not been cleared or approved by the FDA. This assay has been validated pursuant to the CLIA regulations and is used for clinical purposes. Test Performed by [facility], [address] [place], [place] Michael Galindo M.D., Ph.D., Director of Laboratories , CLIA [id number] 01/10/2020 2:09 PM CDT Adelita JASMINE PATHOLOGY/CYTOLOGY ORDERABLES Final Result [facility] [address] [place] [address], [place] [phone] from Last 3 Months or Most Recently Relevant to Health Maintenance Insurance [employer] Care Teams Lubricating Engineer Relationship Specialty Start Date End Date Adelita Duggan FNP [address] [place] [address] [place] [address] PCP - General Nurse Practitioner Family 03/19/18 Estuardo Agee MD [facility] [address] [place] [address] [place] Composite Layup Worker CARDIOVASCULAR DISEASE 06/17/18
[2024-06-03 16:12] LABS: Parathyroid Intact 16.8 pg/mL (14.5-75.2)
[2024-06-04 05:09] LABS: GGT 11 U/L (3-55)
== END 2024-06-03 14:18 | disposition home or self-care (01) ==
LOC: ANHLAB 14:20
PROVIDERS: PCP Nurse Practitioner; Visit Provider Nurse Practitioner
DX: M89.9 Disorder of bone, unspecified (principal)
CPT/HCPCS: 36415; 77075; 82977; 83970